=== PATIENT | female | born 1930 | race Caucasian/White ===

== ENCOUNTER 2017-06-09 09:30 | Inpatient (IN) | payer MEDICARE, BC ==
[2017-06-09] MEDS ORDERED: Docusate Sodium 100 MG Cap PO PRN (09:55)
[2017-06-09] MEDS ORDERED: Albuterol 0.083% 2.5 MG/3 ML Neb Soln NEB PRN (09:55)
[2017-06-09] MEDS ORDERED: Magnesium Hydroxide 400 MG/5 ML Susp 30 ML Cup PO PRN (09:55)
[2017-06-09] MEDS ORDERED: Ondansetron 4 MG/2 ML SDV IV PRN (09:55)
[2017-06-09] MEDS ORDERED: Sodium Chloride 0.9% 10 ML Syringe FLUSH PRN (09:55)
[2017-06-09] MEDS ORDERED: Polyethylene Glycol 3350 Powder 17 GM Packet PO PRN (09:55)
[2017-06-09] MEDS ORDERED: oxyCODONE 5 MG Tab PO PRN (09:55)
[2017-06-09] MEDS ORDERED: hydrALAZINE 20 MG/ML SDV IVPUSH PRN (10:38)
--- NOTE | 2017-06-09 10:48 | PCM.HP ---
H&P History of Present Illness - General Date of Service: 06/09/17 Admit Problem/Dx: Admission Diagnosis/Problem Admission Diagnosis/Problem Bradycardia Source of Information: Patient, Old Records, Provider History Limitations: Reports: No Limitations - History of Present Illness Initial Comments - Free Text/Narative: Ms. Dickerson is an 86-year-old woman who is admitted as a direct admission from the clinic with weakness and shortness of breath secondary to third-degree A-V heart block. She has a known history of Mycobacterium avium intracellular pulmonary infection and as a result of this does have chronic shortness of breath. Over the past 2 weeks she has noted increased weakness with poor exercise tolerance and increase in shortness of breath. She also is experienced some episodes of lightheadedness. During that period of time did have upper respiratory tract infection and was treated with antibiotics. She did experience an adverse reaction to levofloxacin with pain and swelling in both ankles. She denies any recent symptoms of chest pain or pressure and has no prior history of significant cardiac disease. She is currently on no rate slowing medications. - Related Data Allergies/Adverse Reactions: Allergies Allergy/AdvReac Type Severity Reaction Status Date / Time bacitracin Allergy Rash Verified 06/09/17 10:09 bacitracin zinc Allergy Rash Verified 06/09/17 10:09 [From Neosporin ([id number])] neomycin sulfate Allergy Rash Verified 06/09/17 10:09 [From Neosporin ([id number])] polymyxin B Allergy Rash Verified 06/09/17 10:09 [From Neosporin ([id number])] Home Medications: Home Meds NK [No Known Home Meds] 11/11/16 [History] Past Medical History HEENT History: Reports: Cataract, Impaired Vision Respiratory History: Reports: Pneumonia, Recurrent Gastrointestinal History: Reports: Cholelithiasis, Pancreatitis GRID TRIMMER History: Reports: Oncologic (Cancer) History: Reports: Basal Cell Carcinoma, Squamous Cell Carcinoma Dermatologic History: Reports: Other (See Below) Other Dermatologic History: skin cancer - Infectious Disease History Infectious Disease History: Reports: Chicken Pox, Shingles - Past Surgical History HEENT Surgical History: Reports: Cataract Surgery GI Surgical History: Reports: Cholecystectomy, Colonoscopy, EGD Dermatological Surgical History: Reports: Skin Biopsy Social & Family History - Family History Family Medical History: Noncontributory - Tobacco Use Smoking Status *Q: Never Smoker Second Hand Smoke Exposure: No - Caffeine Use Caffeine Use: Reports: Coffee - Alcohol Use Days Per Week of Alcohol Use: 4 Number of Drinks Per Day: 1 Total Drinks Per Week: 4 - Recreational Drug Use Recreational Drug Use: No H&P Review of Systems - Review of Systems: Review Of Systems: See Below General: Reports: Weakness. Denies: Fever, Chills HEENT: Reports: No Symptoms Pulmonary: Reports: Shortness of Breath. Denies: Wheezing, Cough, Sputum, Hemoptysis Cardiovascular: Reports: Dyspnea on Exertion, Lightheadedness. Denies: Chest Pain, Palpitations, Orthopnea, PND, Edema Gastrointestinal: Reports: No Symptoms Genitourinary: Reports: No Symptoms Musculoskeletal: Reports: No Symptoms Skin: Reports: No Symptoms Psychiatric: Reports: No Symptoms Neurological: Reports: No Symptoms Hematologic/Lymphatic: Reports: No Symptoms Immunologic: Reports: No Symptoms Exam - Exam Exam: See Below - Vital Signs Vital Signs: Last Vital Signs Temp 97.3 F 06/09/17 10:00 Pulse 35 L 06/09/17 10:00 Resp 19 06/09/17 10:00 BP 198/53 H 06/09/17 10:00 Pulse Ox 95 06/09/17 10:00 Weight: 129 lb 11.2 oz - Exam Quality Assessment: DVT Prophylaxis General: Alert, Oriented, Cooperative HEENT: Conjunctiva Clear, Hearing Intact, Mucosa Moist & Zuehl, Normal Nasal Septum, Posterior Pharynx Clear, Pupils Equal Neck: Supple, Trachea Midline, +2 Carotid Pulse wo Bruit Lungs: Normal Respiratory Effort, Crackles, Rhonchi. No: Rub, Stridor, Wheezing Cardiovascular: Regular Rhythm, Normal S1, Normal S2, Bradycardia. No: Systolic Murmur, Diastolic Murmur GI/Abdominal Exam: Soft, Non-Tender, No Organomegaly, No Distention Back Exam: Normal Inspection, Full Range of Motion Extremities: Non-Tender, No Pedal Edema Skin: Warm, Dry, Intact Neurological: Cranial Nerves Intact, Strength Equal Bilateral, Normal Speech, Normal Tone, Sensation Intact. No: Focal Deficit Neuro Extensive - Mental Status: Alert, Oriented x3, Normal Mood/Affect, Normal Cognition, Memory Intact - Patient Data Lab Results Last 24 hrs: Laboratory Results - last 24 hr 06/09/17 06/09/17 Range/Units 10:05 10:05 WBC 7.6 (4.5-11.0) K/uL RBC 4.59 (3.30-5.50) M/uL Hgb 13.6 (12.0-15.0) g/dL Hct 42.2 (36.0-48.0) % MCV 92 (80-98) fL MCH 30 (27-31) pg MCHC 32 (32-36) % Plt Count 181 (150-400) K/uL Neut % (Auto) 68 H (36-66) % Lymph % (Auto) 20 L (24-44) % [place] % (Auto) 11 H (2-6) % Eos % (Auto) 1 L (2-4) % Baso % (Auto) 0 (0-1) % Sodium 141 (140-148) mmol/L Potassium 4.4 (3.6-5.2) mmol/L Chloride 106 (100-108) mmol/L Carbon Dioxide 26 (21-32) mmol/L Anion Gap 8.7 (5.0-14.0) mmol/L BUN 25 H (7-18) mg/dL Creatinine 1.1 H (0.6-1.0) mg/dL Est Cr Clr Drug Dosing 33.65 mL/min Estimated GFR (MDRD) 47 L (>60) Glucose 110 H (74-106) mg/dL Calcium 9.2 (8.5-10.1) mg/dL Magnesium 2.0 (1.8-2.4) mg/dL Total Bilirubin 0.4 (0.2-1.0) mg/dL AST 46 H (15-37) U/L ALT 76 (12-78) U/L Alkaline Phosphatase 71 (46-116) U/L Troponin I 0.041 (0.000-0.056) ng/mL Total Protein 6.6 (6.4-8.2) g/dL Albumin 3.3 L (3.4-5.0) g/dL Globulin 3.3 (2.3-3.5) g/dL Albumin/Globulin Ratio 1.0 L (1.2-2.2) Result Diagrams: 06/09/17 10:05 06/09/17 10:05 *Q Meaningful Use (ADM) - VTE *Q VTE Criteria *Q: VTE Pharmacological Contraindications *Q: Patient Scheduled Surgery - VTE Risk Assess *Q Each Risk Factor Represents 1 Point: Serious lung disease including pneumonia Total Score 1 Point Risk Factors: 1 Each Risk Factor Represents 2 Points: None Total Score 2 Point Risk Factors: 0 Each Risk Factor Represents 3 Points: Age 75 Years or Greater Total Score 3 Point Risk Factors: 3 Each Risk Factor Represents 5 Points: None Total Score 5 Point Risk Factors: 0 Venous Thromboembolism Risk Factor Score *Q: 4 - Stroke *Q Stroke Criteria *Q: - AMI *Q AMI Criteria *Q: Problem List Initiated/Reviewed/Updated: Yes Orders Last 24hrs: Active Orders 24 hr Category Date Time Status Patient Status [ADT] Routine ADT 06/09/17 09:52 Ordered Bedrest Bedside Commode [RC] ASDIRECTED Care 06/09/17 09:52 Ordered Cardiac Monitoring [RC] .As Directed Care 06/09/17 09:54 Ordered Height and Weight [RC] DAILY Care 06/09/17 09:52 Ordered Intake and Output [RC] QSHIFT Care 06/09/17 09:52 Ordered Notify Provider Consults [RC] ASDIRECTED Care 06/09/17 09:59 Ordered Notify Provider Vital Signs [RC] ASDIRECTED Care 06/09/17 09:52 Ordered Oxygen Therapy [RC] PRN Care 06/09/17 09:52 Ordered RT Aerosol Therapy [RC] ASDIRECTED Care 06/09/17 09:57 Ordered Up With Assistance [RC] ASDIRECTED Care 06/09/17 09:52 Ordered VTE/DVT Education [RC] Per Unit Routine Care 06/09/17 09:52 Ordered Vital Signs [RC] Q2H Care 06/09/17 09:52 Ordered Consult to Physician [CONS] Routine Cons 06/09/17 09:55 Ordered Nothing per Oral After Midnight Diet [DIET] Diet 06/10/17 Breakfast Ordered Regular Diet [DIET] Diet 06/09/17 Breakfast Ordered Chest 1V Frontal [CR] Stat Exams 06/09/17 09:55 Ordered BASIC METABOLIC PANEL,BMP [CHEM] Timed Lab 06/10/17 05:00 Ordered UA W/MICROSCOPIC [URIN] Stat Lab 06/09/17 09:55 Uncollected Acetaminophen [Tylenol] Med 06/09/17 09:55 Ordered 650 mg PO Q4H PRN Albuterol [Proventil Neb Soln] Med 06/09/17 09:55 Ordered 2.5 mg NEB Q4H PRN Docusate Sodium [Colace] Med 06/09/17 09:55 Ordered 100 mg PO BID PRN Lisinopril [Prinivil] Med 06/09/17 10:45 Ordered 10 mg PO DAILY Magnesium Hydroxide [Milk of Magnesia] Med 06/09/17 09:55 Ordered 30 ml PO Q12H PRN Ondansetron [Zofran] Med 06/09/17 09:55 Ordered 4 mg IV Q4H PRN Polyethylene Glycol 3350 [MiraLAX] Med 06/09/17 09:55 Ordered 17 gm PO DAILY PRN Sodium Chloride 0.9% @ 125 MLS/HR (1000ml) Med 06/10/17 00:01 Ordered Sodium Chloride 0.9% [Normal Saline] 1,000 ml IV ASDIRECTED Sodium Chloride 0.9% [Saline Flush] Med 06/09/17 09:55 Ordered 10 ml FLUSH ASDIRECTED PRN hydrALAZINE [Apresoline] Med 06/09/17 10:38 Ordered 10 mg IVPUSH Q4H PRN oxyCODONE Med 06/09/17 09:55 Ordered 5 mg PO Q4H PRN Saline Lock Insert [OM.PC] Routine Oth 06/09/17 09:55 Ordered Sequential Compression Device [OM.PC] Per Unit Routine Oth 06/09/17 09:54 Ordered VTE Pharmacological Contraindications [AST] Per Unit Oth 06/09/17 09:52 Ordered Routine Resuscitation Status Routine Resus Stat 06/09/17 09:52 Ordered Medication Orders Acetaminophen (Tylenol) 650 mg PO Q4H PRN PRN Reason: Pain (Mild 1-3)/fever Albuterol (Proventil Neb Soln) 2.5 mg NEB Q4H PRN PRN Reason: Shortness Of Breath/wheezing Docusate Sodium (Colace) 100 mg PO BID PRN PRN Reason: Constipation Hydralazine HCl (Apresoline) 10 mg IVPUSH Q4H PRN PRN Reason: Hypertension Sodium Chloride (Normal Saline) 1,000 mls @ 125 mls/hr IV ASDIRECTED LIV Lisinopril (Prinivil) 10 mg PO DAILY LIV Magnesium Hydroxide (Milk Of Magnesia) 30 ml PO Q12H PRN PRN Reason: Constipation Ondansetron HCl (Zofran) 4 mg IV Q4H PRN PRN Reason: Nausea/Vomiting Oxycodone HCl (Oxycodone) 5 mg PO Q4H PRN PRN Reason: Pain (moderate 4-6) Polyethylene Glycol (Miralax) 17 gm PO DAILY PRN PRN Reason: Constipation Sodium Chloride (Saline Flush) 10 ml FLUSH ASDIRECTED PRN PRN Reason: Keep Vein Open Assessment/Plan Comment:: ASSESSMENT AND PLAN THIRD DEGREE AV HEART BLOCK-obvious third-degree block on EKG obtained at the clinic, ventricular escape rate in the mid 30s. Recent symptoms of increased shortness of breath, lightheadedness, weakness with poor exercise tolerance. She is currently on no rate slowing medication and has no previous history of significant heart disease. -Consult Dr. Patel for permanent pacemaker placement -Cardiac monitoring -Bedrest until after pacemaker placement -Nothing by mouth after midnight -Initiate IV fluids after midnight for hydration HISTORY OF PULMONARY MYCOBACTERIUM AVIUM INTRACELLULAR INFECTION-she is left with residual shortness of breath, no evidence of active infection HYPERTENSION-blood pressure has been elevated since admission -Lisinopril 10 mg by mouth daily -Hydralazine 10 mg IV as needed for systolic pressure greater than 180 and/or diastolic pressure greater than 106 CHRONIC KIDNEY DISEASE STAGE III -Closely monitor urine output and renal function during hospital stay MAINTENANCE ISSUES -DVT prophylaxis; SCUDs, hold on anticoagulation pending surgery -GI prophylaxis; not indicated -Gtz catheter; not indicated -Nutrition; regular diet, nothing by mouth after midnight -Nicotine dependence; not required CODE STATUS-FULL CODE ADMISSION STATUS-patient will be admitted to inpatient status, expect at least a 2 night hospital stay for evaluation and management of problems as outlined above. At the time of this admission I do not reasonably expected evaluation and management of this problem will require more than a 96 hour hospital stay. DISPOSITION-anticipate discharge to home after the hospital stay. PRIMARY CARE PROVIDER-Dr. Silverman
--- NOTE | 2017-06-09 11:11 | CR ---
Chest 1V Frontal HISTORY: Bradycardia COMPARISON: 12/12/2010, 06/10/2010. FINDINGS: Portable chest, 1007 hours. Diffuse emphysematous changes are redemonstrated. Scattered interstitial fibrotic changes and scarrin g are noted. Overall interstitial pattern is mildly increased compared to the prior exams. There is b orderline cardiomegaly. Atherosclerotic aorta is noted. No vascular redistribution is seen. Blunting of the costophrenic angles bilaterally could represent a small amount of pleural thickening or fluid. Bony structures are osteopenic. Diffuse degenerative changes are noted along the thoracic spine. IMPRESSION: Emphysema with probable scattered fibrotic changes and scarring. Overall interstitial wilmer g pattern appears mildly increased compared with plain chest radiographs of 11/22/2010. This may repre sent worsening of fibrotic changes. I cannot exclude mild interstitial edema or pneumonitis. There ma y be a small amount of pleural fluid bilaterally. Recommend clinical correlation.
[2017-06-09] MEDS: Lisinopril 10 MG Tab PO SCH (11:17)
[2017-06-09] MEDS: Acetaminophen 325 MG Tab PO PRN (17:48)
[2017-06-09] MEDS: Sodium Chloride 0.9% 1,000 ML IV SCH (23:57)
[2017-06-10] MEDS: Sodium Chloride 0.9% 1,000 ML IV SCH ×2 (07:50→13:57)
[2017-06-10] MEDS ORDERED: fentaNYL 100 MCG/2 ML SDV ONE ×2 (08:27→11:36)
[2017-06-10] MEDS ORDERED: Propofol 200 MG/20 ML SDV ONE ×2 (08:27→11:36)
[2017-06-10] MEDS ORDERED: Midazolam 1 MG/ML 2 ML SDV ONE ×2 (08:27→11:36)
[2017-06-10] MEDS: Lisinopril 10 MG Tab PO SCH ×2 (09:47→14:05)
--- NOTE | 2017-06-10 10:12 | PCM.PN ---
- General Info Date of Service: 06/10/17 Subjective Update: Ms. Dickerson was admitted yesterday with third degree AV block. She has been seen and evaluated by Dr. Patel with plan to proceed with dual-chamber permanent pacemaker placement later today. She has been on bedrest for the most part since admission still notes dyspnea with minimal exertion as well as symptoms of lightheadedness. Functional Status: Reports: Tolerating Diet, Urinating - Review of Systems General: Reports: Weakness. Denies: Fever, Chills Pulmonary: Reports: Shortness of Breath. Denies: Pleuritic Chest Pain, Cough, Sputum, Hemoptysis, Wheezing Cardiovascular: Reports: Dyspnea on Exertion, Lightheadedness. Denies: Chest Pain, Palpitations, Orthopnea, PND, Edema Gastrointestinal: Reports: No Symptoms - Patient Data Vitals - Most Recent: Last Vital Signs Temp 97.8 F 06/10/17 08:00 Pulse 35 L 06/10/17 05:51 Resp 21 H 06/10/17 10:00 BP 166/47 H 06/10/17 10:00 Pulse Ox 91 L 06/10/17 10:00 Weight - Most Recent: 121 lb 11.2 oz I&O - Last 24 Hours: Intake & Output 06/09/17 06/10/17 06/10/17 22:59 06:59 14:59 Intake Total 480 1475 Output Total 550 200 200 Balance -70 1275 -200 Lab Results Last 24 Hours: Laboratory Results - last 24 hr 06/09/17 06/09/17 06/09/17 Range/Units 10:05 10:05 11:28 WBC 7.6 (4.5-11.0) K/uL RBC 4.59 (3.30-5.50) M/uL Hgb 13.6 (12.0-15.0) g/dL Hct 42.2 (36.0-48.0) % MCV 92 (80-98) fL MCH 30 (27-31) pg MCHC 32 (32-36) % Plt Count 181 (150-400) K/uL Neut % (Auto) 68 H (36-66) % Lymph % (Auto) 20 L (24-44) % [place] % (Auto) 11 H (2-6) % Eos % (Auto) 1 L (2-4) % Baso % (Auto) 0 (0-1) % Sodium 141 (140-148) mmol/L Potassium 4.4 (3.6-5.2) mmol/L Chloride 106 (100-108) mmol/L Carbon Dioxide 26 (21-32) mmol/L Anion Gap 8.7 (5.0-14.0) mmol/L BUN 25 H (7-18) mg/dL Creatinine 1.1 H (0.6-1.0) mg/dL Est Cr Clr Drug Dosing 33.65 mL/min Estimated GFR (MDRD) 47 L (>60) Glucose 110 H (74-106) mg/dL Calcium 9.2 (8.5-10.1) mg/dL Magnesium 2.0 (1.8-2.4) mg/dL Total Bilirubin 0.4 (0.2-1.0) mg/dL AST 46 H (15-37) U/L ALT 76 (12-78) U/L Alkaline Phosphatase 71 (46-116) U/L Troponin I 0.041 (0.000-0.056) ng/mL Total Protein 6.6 (6.4-8.2) g/dL Albumin 3.3 L (3.4-5.0) g/dL Globulin 3.3 (2.3-3.5) g/dL Albumin/Globulin Ratio 1.0 L (1.2-2.2) Urine Color Yellow Urine Appearance Clear Urine pH 5.0 (4.5-8.0) Ur Specific [place] 1.010 (1.008-1.030) Urine Protein Negative (NEGATIVE) mg/dL Urine Glucose (UA) Normal (NEGATIVE) mg/dL Urine Ketones 15 H (NEGATIVE) mg/dL Urine Occult Blood Negative (NEGATIVE) Urine Nitrite Negative (NEGATIVE) Urine Bilirubin Negative (NEGATIVE) Urine Urobilinogen Normal (NORMAL) mg/dL Ur Leukocyte Esterase Negative (NEGATIVE) Urine RBC Not seen (0-5) Urine WBC 0-5 (0-5) Ur Epithelial Cells Not seen Amorphous Sediment Rare Urine Bacteria Not seen Urine Mucus Not seen 06/10/17 Range/Units 05:53 WBC (4.5-11.0) K/uL RBC (3.30-5.50) M/uL Hgb (12.0-15.0) g/dL Hct (36.0-48.0) % MCV (80-98) fL MCH (27-31) pg MCHC (32-36) % Plt Count (150-400) K/uL Neut % (Auto) (36-66) % Lymph % (Auto) (24-44) % [place] % (Auto) (2-6) % Eos % (Auto) (2-4) % Baso % (Auto) (0-1) % Sodium 143 (140-148) mmol/L Potassium 4.2 (3.6-5.2) mmol/L Chloride 109 H (100-108) mmol/L Carbon Dioxide 24 (21-32) mmol/L Anion Gap 14.2 H (5.0-14.0) mmol/L BUN 24 H (7-18) mg/dL Creatinine 0.9 (0.6-1.0) mg/dL Est Cr Clr Drug Dosing 40.18 mL/min Estimated GFR (MDRD) 60 (>60) Glucose 86 (74-106) mg/dL Calcium 8.3 L (8.5-10.1) mg/dL Magnesium (1.8-2.4) mg/dL Total Bilirubin (0.2-1.0) mg/dL AST (15-37) U/L ALT (12-78) U/L Alkaline Phosphatase (46-116) U/L Troponin I (0.000-0.056) ng/mL Total Protein (6.4-8.2) g/dL Albumin (3.4-5.0) g/dL Globulin (2.3-3.5) g/dL Albumin/Globulin Ratio (1.2-2.2) Urine Color Urine Appearance Urine pH (4.5-8.0) Ur Specific [place] (1.008-1.030) Urine Protein (NEGATIVE) mg/dL Urine Glucose (UA) (NEGATIVE) mg/dL Urine Ketones (NEGATIVE) mg/dL Urine Occult Blood (NEGATIVE) Urine Nitrite (NEGATIVE) Urine Bilirubin (NEGATIVE) Urine Urobilinogen (NORMAL) mg/dL Ur Leukocyte Esterase (NEGATIVE) Urine RBC (0-5) Urine WBC (0-5) Ur Epithelial Cells Amorphous Sediment Urine Bacteria Urine Mucus Med Orders - Current: Current Medications Acetaminophen (Tylenol) 650 mg PO Q4H PRN PRN Reason: Pain (Mild 1-3)/fever Last Admin: 06/09/17 17:48 Dose: 650 mg Albuterol (Proventil Neb Soln) 2.5 mg NEB Q4H PRN PRN Reason: Shortness Of Breath/wheezing Albuterol/Ipratropium (Duoneb 3.0-0.5 Mg/3 Ml) 3 ml INH ONETIME ONE Stop: 06/10/17 10:16 Docusate Sodium (Colace) 100 mg PO BID PRN PRN Reason: Constipation Hydralazine HCl (Apresoline) 10 mg IVPUSH Q4H PRN PRN Reason: Hypertension Sodium Chloride (Normal Saline) 1,000 mls @ 125 mls/hr IV ASDIRECTED [facility] Last Admin: 06/10/17 07:50 Dose: 125 mls/hr Cefazolin Sodium 2 gm/ Premix 20 mls @ 400 mls/hr IV ONCALL ONE Stop: 06/10/17 10:47 Lisinopril (Prinivil) 10 mg PO DAILY [facility] Last Admin: 06/10/17 09:47 Dose: Not Given Magnesium Hydroxide (Milk Of Magnesia) 30 ml PO Q12H PRN PRN Reason: Constipation Ondansetron HCl (Zofran) 4 mg IV Q4H PRN PRN Reason: Nausea/Vomiting Oxycodone HCl (Oxycodone) 5 mg PO Q4H PRN PRN Reason: Pain (moderate 4-6) Polyethylene Glycol (Miralax) 17 gm PO DAILY PRN PRN Reason: Constipation Sodium Chloride (Saline Flush) 10 ml FLUSH ASDIRECTED PRN PRN Reason: Keep Vein Open Discontinued Medications Fentanyl (Sublimaze) Confirm Administered Dose 100 mcg .ROUTE .STK-MED ONE Stop: 06/10/17 08:28 Midazolam HCl (Versed 1 Mg/Ml) Confirm Administered Dose 2 mg .ROUTE .STK-MED ONE Stop: 06/10/17 08:28 Propofol (Diprivan 20 Ml) Confirm Administered Dose 200 mg .ROUTE .STK-MED ONE Stop: 06/10/17 08:28 - Exam Quality Assessment: DVT Prophylaxis General: Alert, Oriented, Cooperative, Mild Distress Lungs: Clear to Auscultation, Normal Respiratory Effort Cardiovascular: Regular Rhythm, No Murmurs, Bradycardia GI/Abdominal Exam: Soft, Non-Tender, No Organomegaly, No Distention Extremities: Non-Tender, No Pedal Edema Skin: Warm, Dry, Intact - Problem List Review Problem List Initiated/Reviewed/Updated: Yes - My Orders Last 24 Hours: My Active Orders 06/09/17 09:52 Patient Status [ADT] Routine Bedrest Bedside Commode [RC] ASDIRECTED Height and Weight [RC] DAILY Intake and Output [RC] QSHIFT Notify Provider Vital Signs [RC] ASDIRECTED Oxygen Therapy [RC] PRN Up With Assistance [RC] ASDIRECTED VTE/DVT Education [RC] Per Unit Routine Vital Signs [RC] Q2H VTE Pharmacological Contraindications [AST] Per Unit Routine Resuscitation Status Routine 06/09/17 09:54 Cardiac Monitoring [RC] Q6H Sequential Compression Device [OM.PC] Per Unit Routine 06/09/17 09:55 Consult to Physician [CONS] Routine Acetaminophen [Tylenol] 650 mg PO Q4H PRN Albuterol [Proventil Neb Soln] 2.5 mg NEB Q4H PRN Docusate Sodium [Colace] 100 mg PO BID PRN Magnesium Hydroxide [Milk of Magnesia] 30 ml PO Q12H PRN Ondansetron [Zofran] 4 mg IV Q4H PRN Polyethylene Glycol 3350 [MiraLAX] 17 gm PO DAILY PRN Sodium Chloride 0.9% [Saline Flush] 10 ml FLUSH ASDIRECTED PRN oxyCODONE 5 mg PO Q4H PRN Saline Lock Insert [OM.PC] Routine 06/09/17 09:57 RT Aerosol Therapy [RC] ASDIRECTED 06/09/17 09:59 Notify Provider Consults [RC] ASDIRECTED 06/09/17 10:38 hydrALAZINE [Apresoline] 10 mg IVPUSH Q4H PRN 06/09/17 10:45 Lisinopril [Prinivil] 10 mg PO DAILY 06/10/17 00:01 Sodium Chloride 0.9% [Normal Saline] 1,000 ml IV ASDIRECTED 06/10/17 Breakfast Nothing per Oral After Midnight Diet [DIET] - Plan Plan:: ASSESSMENT AND PLAN THIRD DEGREE AV HEART BLOCK-stable since admission, heart rate has remained continuously in the 30s. -Dual-chamber permanent pacemaker placement today with Dr. Patel -Cardiac monitoring -Bedrest until after pacemaker placement -Nothing by mouth after midnight -Initiate IV fluids after midnight for hydration HISTORY OF PULMONARY MYCOBACTERIUM AVIUM INTRACELLULAR INFECTION-she is left with residual shortness of breath, no evidence of active infection Blood pressures been under better control with addition of lisinopril, still remains elevated from desired range -Lisinopril 10 mg by mouth daily -Hydralazine 10 mg IV as needed for systolic pressure greater than 180 and/or diastolic pressure greater than 106 CHRONIC KIDNEY DISEASE STAGE III -Closely monitor urine output and renal function during hospital stay MAINTENANCE ISSUES -DVT prophylaxis; SCUDs, hold on anticoagulation pending surgery -GI prophylaxis; not indicated -Gtz catheter; not indicated -Nutrition; regular diet, nothing by mouth after midnight -Nicotine dependence; not required CODE STATUS-FULL CODE ADMISSION STATUS-patient will be admitted to inpatient status, expect at least a 2 night hospital stay for evaluation and management of problems as outlined above. At the time of this admission I do not reasonably expected evaluation and management of this problem will require more than a 96 hour hospital stay. DISPOSITION-anticipate discharge to home after the hospital stay. PRIMARY CARE PROVIDER-Dr. Silverman
[2017-06-10] MEDS ORDERED: Albuterol/Ipratropium 3.0-0.5 MG/3 ML Neb Soln INH ONE (10:15)
[2017-06-10] MEDS ORDERED: ceFAZolin 2 GM in Premix Bag 1 BAG IV ONE (10:45)
[2017-06-10] MEDS ORDERED: Bupivacaine 0.5% 50 ML MDV ONE (11:41)
[2017-06-10] MEDS ORDERED: Lidocaine 1% with EPINEPHrine 1:100,000 50 ML MDV ONE (11:41)
[2017-06-10] MEDS ORDERED: Meropenem 500 MG SDV ONE (11:42)
[2017-06-10] MEDS ORDERED: Linezolid 200 MG/100 ML Bag IRR ONE (12:24)
[2017-06-10] MEDS ORDERED: Sodium Chloride 0.9% 1,000 ML IV SCH (14:00)
[2017-06-10] MEDS: Acetaminophen 325 MG Tab PO PRN (14:09)
[2017-06-10] MEDS: ceFAZolin 1 GM in Premix Bag 1 BAG IV SCH (17:22)
[2017-06-10] MEDS ORDERED: Lisinopril 10 MG Tab PO ONE (17:40)
[2017-06-11] MEDS: ceFAZolin 1 GM in Premix Bag 1 BAG IV SCH ×2 (01:24→09:26)
[2017-06-11] MEDS: Lisinopril 10 MG Tab PO SCH ×2 (08:37→21:51)
--- NOTE | 2017-06-11 10:31 | PCM.PN ---
- General Info Date of Service: 06/11/17 Subjective Update: Ms. Dickerson status post permanent pacemaker placement done yesterday by Dr. Patel , since then heart rate has been in the 70s and 80s. Unfortunately she has not experienced good improvement in exercise tolerance or shortness of breath. She does have a known history of pulmonary fibrosis and previous MAC pneumonia. We have a documented hypoxia on room air at rest of 87%. She become short of breath with fairly minimal exertion. - Review of Systems General: Reports: Weakness. Denies: Fever, Chills Pulmonary: Reports: Shortness of Breath. Denies: Pleuritic Chest Pain, Cough, Sputum, Hemoptysis, Wheezing Cardiovascular: Reports: Dyspnea on Exertion. Denies: Chest Pain, Palpitations , Orthopnea, PND, Edema Gastrointestinal: Reports: No Symptoms Musculoskeletal: Reports: No Symptoms - Patient Data Vitals - Most Recent: Last Vital Signs Temp 97.9 F 06/11/17 07:00 Pulse 84 06/11/17 07:00 Resp 19 06/11/17 07:00 BP 162/77 H 06/11/17 08:37 Pulse Ox 96 06/11/17 07:00 Weight - Most Recent: 121 lb 11.2 oz I&O - Last 24 Hours: Intake & Output 06/10/17 06/11/17 06/11/17 22:59 06:59 14:59 Intake Total 1129 1255 Output Total 400 600 Balance 729 655 Med Orders - Current: Current Medications Acetaminophen (Tylenol) 650 mg PO Q4H PRN PRN Reason: Pain (Mild 1-3)/fever Last Admin: 06/10/17 14:09 Dose: 650 mg Albuterol (Proventil Neb Soln) 2.5 mg NEB Q4H PRN PRN Reason: Shortness Of Breath/wheezing Docusate Sodium (Colace) 100 mg PO BID PRN PRN Reason: Constipation Hydralazine HCl (Apresoline) 10 mg IVPUSH Q4H PRN PRN Reason: Hypertension Cefazolin Sodium/Dextrose 1 gm (/ Premix) 50 mls @ 100 mls/hr IV Q8H [facility] Stop: 06/11/17 10:29 Last Admin: 06/11/17 09:26 Dose: 100 mls/hr Lisinopril (Prinivil) 10 mg PO BID [facility] Magnesium Hydroxide (Milk Of Magnesia) 30 ml PO Q12H PRN PRN Reason: Constipation Metoprolol Tartrate (Lopressor) 25 mg PO BID [facility] Ondansetron HCl (Zofran) 4 mg IV Q4H PRN PRN Reason: Nausea/Vomiting Oxycodone HCl (Oxycodone) 5 mg PO Q4H PRN PRN Reason: Pain (moderate 4-6) Last Admin: 06/10/17 20:58 Dose: 5 mg Polyethylene Glycol (Miralax) 17 gm PO DAILY PRN PRN Reason: Constipation Sodium Chloride (Saline Flush) 10 ml FLUSH ASDIRECTED PRN PRN Reason: Keep Vein Open Discontinued Medications Albuterol/Ipratropium (Duoneb 3.0-0.5 Mg/3 Ml) 3 ml INH ONETIME ONE Stop: 06/10/17 10:16 Last Admin: 06/10/17 11:40 Dose: 3 ml Bupivacaine HCl (Marcaine 0.5%) Confirm Administered Dose 50 ml .ROUTE .STK-MED ONE Stop: 06/10/17 11:42 Last Admin: 06/10/17 12:22 Dose: 5 ml Fentanyl (Sublimaze) Confirm Administered Dose 100 mcg .ROUTE .STK-MED ONE Stop: 06/10/17 08:28 Fentanyl (Sublimaze) Confirm Administered Dose 100 mcg .ROUTE .STK-MED ONE Stop: 06/10/17 11:37 Sodium Chloride (Normal Saline) 1,000 mls @ 125 mls/hr IV ASDIRECTED [facility] Last Admin: 06/10/17 13:57 Dose: 125 mls/hr Cefazolin Sodium 2 gm/ Premix 20 mls @ 400 mls/hr IV ONCALL ONE Stop: 06/10/17 10:47 Last Admin: 06/10/17 11:42 Dose: 400 mls/hr Linezolid (Zyvox) Confirm Administered Dose 100 mls @ as directed .ROUTE .STK- MED ONE Stop: 06/10/17 11:43 Sodium Chloride (Normal Saline) 1,000 mls @ 100 mls/hr IV ASDIRECTED [facility] Last Admin: 06/11/17 00:34 Dose: 100 mls/hr Lidocaine/Epinephrine (Xylocaine 1% With Epinephrine 1:100,000) Confirm Administered Dose 50 ml .ROUTE .STK-MED ONE Stop: 06/10/17 11:42 Last Admin: 06/10/17 12:22 Dose: 5 ml Linezolid (Zyvox) 200 mg IRR .STK-MED ONE Stop: 06/10/17 12:25 Last Admin: 06/10/17 12:24 Dose: 200 mg Lisinopril (Prinivil) 10 mg PO DAILY [facility] Last Admin: 06/11/17 08:37 Dose: 10 mg Lisinopril (Prinivil) 10 mg PO ONETIME ONE Stop: 06/10/17 17:41 Last Admin: 06/10/17 17:30 Dose: 10 mg Meropenem (Merrem) Confirm Administered Dose 500 mg .ROUTE .STK-MED ONE Stop: 06/10/17 11:43 Last Admin: 06/10/17 12:23 Dose: 500 mg Midazolam HCl (Versed 1 Mg/Ml) Confirm Administered Dose 2 mg .ROUTE .STK-MED ONE Stop: 06/10/17 08:28 Midazolam HCl (Versed 1 Mg/Ml) Confirm Administered Dose 2 mg .ROUTE .STK-MED ONE Stop: 06/10/17 11:37 Propofol (Diprivan 20 Ml) Confirm Administered Dose 200 mg .ROUTE .STK-MED ONE Stop: 06/10/17 08:28 Propofol (Diprivan 20 Ml) Confirm Administered Dose 200 mg .ROUTE .STK-MED ONE Stop: 06/10/17 11:37 - Exam Quality Assessment: Supplemental Oxygen, DVT Prophylaxis General: Alert, Oriented, Cooperative, Mild Distress Lungs: Normal Respiratory Effort, Crackles Cardiovascular: Regular Rate, Regular Rhythm, No Murmurs GI/Abdominal Exam: Soft, Non-Tender, No Organomegaly, No Distention Extremities: Non-Tender, No Pedal Edema Skin: Warm, Dry, Intact - Problem List Review Problem List Initiated/Reviewed/Updated: Yes - My Orders Last 24 Hours: My Active Orders 06/11/17 09:25 Convert IV to Saline Lock [OM.PC] Routine 06/11/17 10:18 Ang Chest [CT] Stat 06/11/17 10:30 Metoprolol Tartrate [Lopressor] 25 mg PO Q12HR 06/11/17 21:00 Lisinopril [Prinivil] 10 mg PO BID 06/11/17 Breakfast 2 Gram Sodium Diet [DIET] 06/12/17 05:00 BASIC METABOLIC PANEL,BMP [CHEM] Timed CBC WITH AUTO DIFF [HEME] Timed - Plan Plan:: ASSESSMENT AND PLAN THIRD DEGREE AV HEART BLOCK-stable status post permanent pacemaker placement -Surgical follow-up per Dr. Patel -Cardiac monitoring -Saline lock IV PULMONARY FIBROIS-history of MAC infection and is left with residual shortness of breath, no evidence of active infection. Significant hypoxia at rest and with activity as documented above. -Arrange for home oxygen -CT scan of chest with PE protocol HYPERTENSION-blood pressures been under better control with addition of lisinopril, still remains elevated from desired range -Lisinopril 10 mg twice a day -Metoprolol 25 mg by mouth twice a day -Hydralazine 10 mg IV as needed for systolic pressure greater than 180 and/or diastolic pressure greater than 106 CHRONIC KIDNEY DISEASE STAGE III-renal function has been stable since admission. -Closely monitor urine output and renal function during hospital stay MAINTENANCE ISSUES -DVT prophylaxis; SCUDs, hold on anticoagulation pending surgery -GI prophylaxis; not indicated -Gtz catheter; not indicated -Nutrition; regular diet, nothing by mouth after midnight -Nicotine dependence; not required CODE STATUS-FULL CODE ADMISSION STATUS-patient will be admitted to inpatient status, expect at least a 2 night hospital stay for evaluation and management of problems as outlined above. At the time of this admission I do not reasonably expected evaluation and management of this problem will require more than a 96 hour hospital stay. DISPOSITION-anticipate discharge to home after the hospital stay. PRIMARY CARE PROVIDER-Dr. Silverman
[2017-06-11] MEDS ORDERED: Sodium Chloride 0.9% 10 ML Syringe FLUSH PRN (11:24)
[2017-06-11] MEDS ORDERED: Sodium Chloride 0.9% 100 ML IV SCH (11:30)
[2017-06-11] MEDS ORDERED: Iopamidol 755 Mg/ML 100 ML Bottle IV SCH (11:30)
[2017-06-11] MEDS: Metoprolol Tartrate 25 MG Tab PO SCH ×2 (12:33→21:51)
[2017-06-11] MEDS: Acetaminophen 325 MG Tab PO PRN ×2 (16:20→21:54)
[2017-06-12] MEDS: Metoprolol Tartrate 25 MG Tab PO SCH ×2 (08:28→20:19)
[2017-06-12] MEDS: Lisinopril 10 MG Tab PO SCH ×2 (08:28→20:19)
[2017-06-12] MEDS: Acetaminophen 325 MG Tab PO PRN ×2 (12:27→20:25)
--- NOTE | 2017-06-12 12:50 | PCM.PN ---
- General Info Date of Service: 06/12/17 Subjective Update: Ms. Dickerson has continued to experience symptoms of shortness of breath with minimal exertion and has required ongoing supplemental oxygen to maintain adequate saturations. Denies any symptoms of chest pain or pressure and there has been no PND, orthopnea, or peripheral edema. CT scan of the chest yesterday showed evidence of chronic pulmonary fibrosis secondary to previous MAC infection. There was no obvious infiltrate or pulmonary embolism. She did have mild to moderate bilateral pleural effusions. Functional Status: Reports: Tolerating Diet, Urinating - Review of Systems General: Reports: Weakness. Denies: Fever, Chills Pulmonary: Reports: Shortness of Breath. Denies: Pleuritic Chest Pain, Cough, Sputum, Hemoptysis, Wheezing Cardiovascular: Reports: Dyspnea on Exertion, Lightheadedness. Denies: Chest Pain, Palpitations, Orthopnea, PND, Edema Gastrointestinal: Reports: No Symptoms - Patient Data Vitals - Most Recent: Last Vital Signs Temp 97.7 F 06/12/17 08:00 Pulse 85 06/12/17 08:28 Resp 20 06/12/17 08:00 BP 138/76 06/12/17 08:28 Pulse Ox 95 06/12/17 08:00 Weight - Most Recent: 130 lb 6.4 oz I&O - Last 24 Hours: Intake & Output 06/11/17 06/12/17 06/12/17 22:59 06:59 14:59 Intake Total 640 580 Output Total 300 400 450 Balance 340 -400 130 Lab Results Last 24 Hours: Laboratory Results - last 24 hr 06/12/17 06/12/17 Range/Units 04:43 04:43 WBC 8.9 (4.5-11.0) K/uL RBC 4.47 (3.30-5.50) M/uL Hgb 13.1 (12.0-15.0) g/dL Hct 40.8 (36.0-48.0) % MCV 91 (80-98) fL MCH 29 (27-31) pg MCHC 32 (32-36) % Plt Count 152 (150-400) K/uL Neut % (Auto) 55 (36-66) % Lymph % (Auto) 27 (24-44) % [place] % (Auto) 11 H (2-6) % Eos % (Auto) 6 H (2-4) % Baso % (Auto) 0 (0-1) % Sodium 140 (140-148) mmol/L Potassium 3.9 (3.6-5.2) mmol/L Chloride 106 (100-108) mmol/L Carbon Dioxide 23 (21-32) mmol/L Anion Gap 11.5 (5.0-14.0) mmol/L BUN 12 (7-18) mg/dL Creatinine 0.7 (0.6-1.0) mg/dL Est Cr Clr Drug Dosing 51.20 mL/min Estimated GFR (MDRD) > 60 (>60) Glucose 105 (74-106) mg/dL Calcium 8.5 (8.5-10.1) mg/dL Med Orders - Current: Current Medications Acetaminophen (Tylenol) 650 mg PO Q4H PRN PRN Reason: Pain (Mild 1-3)/fever Last Admin: 06/12/17 12:27 Dose: 650 mg Albuterol (Proventil Neb Soln) 2.5 mg NEB Q4H PRN PRN Reason: Shortness Of Breath/wheezing Last Admin: 06/12/17 04:04 Dose: 2.5 mg Docusate Sodium (Colace) 100 mg PO BID PRN PRN Reason: Constipation Furosemide (Lasix) 40 mg IVPUSH NOW ONE Stop: 06/12/17 12:42 Hydralazine HCl (Apresoline) 10 mg IVPUSH Q4H PRN PRN Reason: Hypertension Sodium Chloride (Normal Saline) 100 mls @ 3.5 mls/sec IV ASDIRECTED [facility] Last Admin: 06/11/17 12:06 Dose: 4 mls/sec Iopamidol (Isovue-370 (76%)) 90 ml IV . DIRECTED [facility] Last Admin: 06/11/17 12:06 Dose: 90 ml Lisinopril (Prinivil) 10 mg PO BID [facility] Last Admin: 06/12/17 08:28 Dose: 10 mg Magnesium Hydroxide (Milk Of Magnesia) 30 ml PO Q12H PRN PRN Reason: Constipation Metoprolol Tartrate (Lopressor) 25 mg PO BID [facility] Last Admin: 06/12/17 08:28 Dose: 25 mg Ondansetron HCl (Zofran) 4 mg IV Q4H PRN PRN Reason: Nausea/Vomiting Oxycodone HCl (Oxycodone) 5 mg PO Q4H PRN PRN Reason: Pain (moderate 4-6) Last Admin: 06/10/17 20:58 Dose: 5 mg Polyethylene Glycol (Miralax) 17 gm PO DAILY PRN PRN Reason: Constipation Sodium Chloride (Saline Flush) 10 ml FLUSH ASDIRECTED PRN PRN Reason: Keep Vein Open Discontinued Medications Albuterol/Ipratropium (Duoneb 3.0-0.5 Mg/3 Ml) 3 ml INH ONETIME ONE Stop: 06/10/17 10:16 Last Admin: 06/10/17 11:40 Dose: 3 ml Bupivacaine HCl (Marcaine 0.5%) Confirm Administered Dose 50 ml .ROUTE .STK-MED ONE Stop: 06/10/17 11:42 Last Admin: 06/10/17 12:22 Dose: 5 ml Fentanyl (Sublimaze) Confirm Administered Dose 100 mcg .ROUTE .STK-MED ONE Stop: 06/10/17 08:28 Fentanyl (Sublimaze) Confirm Administered Dose 100 mcg .ROUTE .STK-MED ONE Stop: 06/10/17 11:37 Sodium Chloride (Normal Saline) 1,000 mls @ 125 mls/hr IV ASDIRECTED [facility] Last Admin: 06/10/17 13:57 Dose: 125 mls/hr Cefazolin Sodium 2 gm/ Premix 20 mls @ 400 mls/hr IV ONCALL ONE Stop: 06/10/17 10:47 Last Admin: 06/10/17 11:42 Dose: 400 mls/hr Linezolid (Zyvox) Confirm Administered Dose 100 mls @ as directed .ROUTE .STK- MED ONE Stop: 06/10/17 11:43 Sodium Chloride (Normal Saline) 1,000 mls @ 100 mls/hr IV ASDIRECTED [facility] Last Admin: 06/11/17 00:34 Dose: 100 mls/hr Cefazolin Sodium/Dextrose 1 gm (/ Premix) 50 mls @ 100 mls/hr IV Q8H [facility] Stop: 06/11/17 10:29 Last Admin: 06/11/17 09:26 Dose: 100 mls/hr Lidocaine/Epinephrine (Xylocaine 1% With Epinephrine 1:100,000) Confirm Administered Dose 50 ml .ROUTE .STK-MED ONE Stop: 06/10/17 11:42 Last Admin: 06/10/17 12:22 Dose: 5 ml Linezolid (Zyvox) 200 mg IRR .STK-MED ONE Stop: 06/10/17 12:25 Last Admin: 06/10/17 12:24 Dose: 200 mg Lisinopril (Prinivil) 10 mg PO DAILY [facility] Last Admin: 06/11/17 08:37 Dose: 10 mg Lisinopril (Prinivil) 10 mg PO ONETIME ONE Stop: 06/10/17 17:41 Last Admin: 06/10/17 17:30 Dose: 10 mg Meropenem (Merrem) Confirm Administered Dose 500 mg .ROUTE .STK-MED ONE Stop: 06/10/17 11:43 Last Admin: 06/10/17 12:23 Dose: 500 mg Midazolam HCl (Versed 1 Mg/Ml) Confirm Administered Dose 2 mg .ROUTE .STK-MED ONE Stop: 06/10/17 08:28 Midazolam HCl (Versed 1 Mg/Ml) Confirm Administered Dose 2 mg .ROUTE .STK-MED ONE Stop: 06/10/17 11:37 Propofol (Diprivan 20 Ml) Confirm Administered Dose 200 mg .ROUTE .STK-MED ONE Stop: 06/10/17 08:28 Propofol (Diprivan 20 Ml) Confirm Administered Dose 200 mg .ROUTE .STK-MED ONE Stop: 06/10/17 11:37 Sodium Chloride (Saline Flush) 10 ml FLUSH ASDIRECTED PRN PRN Reason: Keep Vein Open Stop: 06/11/17 23:00 Last Admin: 06/11/17 12:06 Dose: 10 ml - Exam Quality Assessment: Supplemental Oxygen, DVT Prophylaxis General: Alert, Oriented, Cooperative, Mild Distress Lungs: Clear to Auscultation, Normal Respiratory Effort Cardiovascular: Regular Rate, Regular Rhythm, No Murmurs GI/Abdominal Exam: Soft, Non-Tender, No Organomegaly, No Distention Extremities: Non-Tender, No Pedal Edema Skin: Warm, Dry, Intact - Problem List Review Problem List Initiated/Reviewed/Updated: Yes - My Orders Last 24 Hours: My Active Orders 06/13/17 05:00 BASIC METABOLIC PANEL,BMP [CHEM] Timed 06/14/17 08:00 Echo Comp wo Cont [US] Urgent 06/15/17 08:00 Myocardial Perf Spect Multi [NM] Routine 06/11/17 21:00 Lisinopril [Prinivil] 10 mg PO BID 06/12/17 12:41 Furosemide [Lasix] 40 mg IVPUSH NOW ONE - Plan Plan:: ASSESSMENT AND PLAN THIRD DEGREE AV HEART BLOCK-stable status post permanent pacemaker placement -Surgical follow-up per Dr. Patel -Cardiac monitoring -Saline lock IV PERSISTENT HYPOXIA AND DYSPNEA-CT scan of the chest obtained yesterday, no PE or obvious infiltrate. 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 There were mild to moderate bilateral pleural effusions and evidence of cardiac enlargement. -Echocardiogram on June 14 -Flushing scan Cardiolite study on June 15 -Continue SHERRILL inhibitor and beta merary as initiated for hypertension -Furosemide 40 mg IV today PULMONARY FIBROIS-history of MAC infection and is left with residual shortness of breath, no evidence of active infection. Significant hypoxia at rest and with activity as documented above. -Arrange for home oxygen HYPERTENSION-blood pressures been under better control with addition of lisinopril, still remains elevated from desired range -Lisinopril 10 mg twice a day -Metoprolol 25 mg by mouth twice a day -Hydralazine 10 mg IV as needed for systolic pressure greater than 180 and/or diastolic pressure greater than 106 CHRONIC KIDNEY DISEASE STAGE III-renal function has been stable since admission. -Closely monitor urine output and renal function during hospital stay MAINTENANCE ISSUES -DVT prophylaxis; SCUDs, hold on anticoagulation pending surgery -GI prophylaxis; not indicated -Gtz catheter; not indicated -Nutrition; regular diet, nothing by mouth after midnight -Nicotine dependence; not required CODE STATUS-FULL CODE ADMISSION STATUS-patient will be admitted to inpatient status, expect at least a 2 night hospital stay for evaluation and management of problems as outlined above. At the time of this admission I do not reasonably expected evaluation and management of this problem will require more than a 96 hour hospital stay. DISPOSITION-anticipate discharge to [facility] for restorative physical therapy and occupational therapy. PRIMARY CARE PROVIDER-Dr. Silverman
[2017-06-12] MEDS ORDERED: Furosemide 40 MG/4 ML VIAL IVPUSH ONE (13:00)
[2017-06-13] MEDS: Lisinopril 10 MG Tab PO SCH ×2 (08:57→20:11)
[2017-06-13] MEDS: Metoprolol Tartrate 25 MG Tab PO SCH ×2 (08:57→20:09)
--- NOTE | 2017-06-13 11:58 | PCM.PN ---
- General Info Date of Service: 06/13/17 Functional Status: Reports: Pain Controlled, Tolerating Diet - Review of Systems General: Reports: Weakness Pulmonary: Reports: Shortness of Breath Systems Review Comment:: No acute events overnight. Still has a intermittently productive cough. She feels very tired and become short of breath with any activity. Significant desaturation with activity and off oxygen. No significant chest pain or discomfort at this time. She has not had any fevers. Vital signs have all been stable. - Patient Data Vitals - Most Recent: Last Vital Signs Temp 36.5 C 06/13/17 11:00 Pulse 83 06/13/17 11:00 Resp 18 06/13/17 11:00 BP 123/76 06/13/17 11:00 Pulse Ox 92 L 06/13/17 11:00 Weight - Most Recent: 59.058 kg I&O - Last 24 Hours: Intake & Output 06/12/17 06/13/17 06/13/17 22:59 06:59 14:59 Intake Total 240 180 Output Total 900 300 Balance -660 -120 Lab Results Last 24 Hours: Laboratory Results - last 24 hr 06/13/17 Range/Units 06:00 Sodium 142 (140-148) mmol/L Potassium 4.2 (3.6-5.2) mmol/L Chloride 107 (100-108) mmol/L Carbon Dioxide 29 (21-32) mmol/L Anion Gap 6.1 (5.0-14.0) mmol/L BUN 20 H D (7-18) mg/dL Creatinine 0.8 (0.6-1.0) mg/dL Est Cr Clr Drug Dosing 46.26 mL/min Estimated GFR (MDRD) > 60 (>60) Glucose 95 (74-106) mg/dL Calcium 8.9 (8.5-10.1) mg/dL Med Orders - Current: Current Medications Acetaminophen (Tylenol) 650 mg PO Q4H PRN PRN Reason: Pain (Mild 1-3)/fever Last Admin: 06/12/17 20:25 Dose: 650 mg Albuterol (Proventil Neb Soln) 2.5 mg NEB Q4H PRN PRN Reason: Shortness Of Breath/wheezing Last Admin: 06/12/17 04:04 Dose: 2.5 mg Docusate Sodium (Colace) 100 mg PO BID PRN PRN Reason: Constipation Last Admin: 06/13/17 08:57 Dose: 100 mg Hydralazine HCl (Apresoline) 10 mg IVPUSH Q4H PRN PRN Reason: Hypertension Sodium Chloride (Normal Saline) 100 mls @ 3.5 mls/sec IV ASDIRECTED [facility] Last Admin: 06/11/17 12:06 Dose: 4 mls/sec Iopamidol (Isovue-370 (76%)) 90 ml IV . DIRECTED [facility] Last Admin: 06/11/17 12:06 Dose: 90 ml Lisinopril (Prinivil) 10 mg PO BID [facility] Last Admin: 06/13/17 08:57 Dose: 10 mg Magnesium Hydroxide (Milk Of Magnesia) 30 ml PO Q12H PRN PRN Reason: Constipation Metoprolol Tartrate (Lopressor) 25 mg PO BID [facility] Last Admin: 06/13/17 08:57 Dose: 25 mg Ondansetron HCl (Zofran) 4 mg IV Q4H PRN PRN Reason: Nausea/Vomiting Oxycodone HCl (Oxycodone) 5 mg PO Q4H PRN PRN Reason: Pain (moderate 4-6) Last Admin: 06/10/17 20:58 Dose: 5 mg Polyethylene Glycol (Miralax) 17 gm PO DAILY PRN PRN Reason: Constipation Sodium Chloride (Saline Flush) 10 ml FLUSH ASDIRECTED PRN PRN Reason: Keep Vein Open Discontinued Medications Albuterol/Ipratropium (Duoneb 3.0-0.5 Mg/3 Ml) 3 ml INH ONETIME ONE Stop: 06/10/17 10:16 Last Admin: 06/10/17 11:40 Dose: 3 ml Bupivacaine HCl (Marcaine 0.5%) Confirm Administered Dose 50 ml .ROUTE .STK-MED ONE Stop: 06/10/17 11:42 Last Admin: 06/10/17 12:22 Dose: 5 ml Fentanyl (Sublimaze) Confirm Administered Dose 100 mcg .ROUTE .STK-MED ONE Stop: 06/10/17 08:28 Fentanyl (Sublimaze) Confirm Administered Dose 100 mcg .ROUTE .STK-MED ONE Stop: 06/10/17 11:37 Furosemide (Lasix) 40 mg IVPUSH NOW ONE Stop: 06/12/17 13:01 Last Admin: 06/12/17 13:12 Dose: 40 mg Sodium Chloride (Normal Saline) 1,000 mls @ 125 mls/hr IV ASDIRECTED [facility] Last Admin: 06/10/17 13:57 Dose: 125 mls/hr Cefazolin Sodium 2 gm/ Premix 20 mls @ 400 mls/hr IV ONCALL ONE Stop: 06/10/17 10:47 Last Admin: 06/10/17 11:42 Dose: 400 mls/hr Linezolid (Zyvox) Confirm Administered Dose 100 mls @ as directed .ROUTE .STK- MED ONE Stop: 06/10/17 11:43 Sodium Chloride (Normal Saline) 1,000 mls @ 100 mls/hr IV ASDIRECTED [facility] Last Admin: 06/11/17 00:34 Dose: 100 mls/hr Cefazolin Sodium/Dextrose 1 gm (/ Premix) 50 mls @ 100 mls/hr IV Q8H [facility] Stop: 06/11/17 10:29 Last Admin: 06/11/17 09:26 Dose: 100 mls/hr Lidocaine/Epinephrine (Xylocaine 1% With Epinephrine 1:100,000) Confirm Administered Dose 50 ml .ROUTE .STK-MED ONE Stop: 06/10/17 11:42 Last Admin: 06/10/17 12:22 Dose: 5 ml Linezolid (Zyvox) 200 mg IRR .STK-MED ONE Stop: 06/10/17 12:25 Last Admin: 06/10/17 12:24 Dose: 200 mg Lisinopril (Prinivil) 10 mg PO DAILY [facility] Last Admin: 06/11/17 08:37 Dose: 10 mg Lisinopril (Prinivil) 10 mg PO ONETIME ONE Stop: 06/10/17 17:41 Last Admin: 06/10/17 17:30 Dose: 10 mg Meropenem (Merrem) Confirm Administered Dose 500 mg .ROUTE .STK-MED ONE Stop: 06/10/17 11:43 Last Admin: 06/10/17 12:23 Dose: 500 mg Midazolam HCl (Versed 1 Mg/Ml) Confirm Administered Dose 2 mg .ROUTE .STK-MED ONE Stop: 06/10/17 08:28 Midazolam HCl (Versed 1 Mg/Ml) Confirm Administered Dose 2 mg .ROUTE .STK-MED ONE Stop: 06/10/17 11:37 Propofol (Diprivan 20 Ml) Confirm Administered Dose 200 mg .ROUTE .STK-MED ONE Stop: 06/10/17 08:28 Propofol (Diprivan 20 Ml) Confirm Administered Dose 200 mg .ROUTE .STK-MED ONE Stop: 06/10/17 11:37 Sodium Chloride (Saline Flush) 10 ml FLUSH ASDIRECTED PRN PRN Reason: Keep Vein Open Stop: 06/11/17 23:00 Last Admin: 06/11/17 12:06 Dose: 10 ml - Exam Quality Assessment: Supplemental Oxygen General: Alert, Oriented, Cooperative, No Acute Distress Neck: Supple, No JVD Lungs: Normal Respiratory Effort, Crackles (both bases) Cardiovascular: Regular Rate, Regular Rhythm, No Murmurs GI/Abdominal Exam: Soft, No Distention Extremities: No Pedal Edema Psy/Mental Status: Alert, Normal Affect - Problem List Review Problem List Initiated/Reviewed/Updated: Yes - Plan Plan:: ASSESSMENT AND PLAN 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 Planning stress test to assess for presence of ischemic heart disease. -Surgical follow-up per Dr. Patel -Cardiac monitoring -Saline lock IV PERSISTENT HYPOXIA AND DYSPNEA - CT scan of the chest did not show PE or obvious infiltrate. 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 There were mild to moderate bilateral pleural effusions and evidence of cardiac enlargement. -Thoracentesis for diagnostic purposes in the morning -Echocardiogram on June 14 -Lexiscan Cardiolite study on June 3 -Continue SHERRILL inhibitor and beta merary as initiated for hypertension -Furosemide 40 mg IV today PULMONARY FIBROIS - history of MAC infection and is left with residual shortness of breath, no evidence of active infection so far. Significant hypoxia at rest and with activity as documented above. -Arrange for home oxygen HYPERTENSION - blood pressures been under better control with addition of lisinopril. -Lisinopril 10 mg twice a day -Metoprolol 25 mg by mouth twice a day -Hydralazine 10 mg IV as needed for systolic pressure greater than 180 and/or diastolic pressure greater than 106 CHRONIC KIDNEY DISEASE STAGE III - renal function has been stable since admission. -Closely monitor urine output and renal function during hospital stay MAINTENANCE ISSUES -DVT prophylaxis; SCUDs, hold on anticoagulation pending surgery -GI prophylaxis; not indicated -Gtz catheter; not indicated -Nutrition; regular diet DISPOSITION - anticipate discharge to group home for restorative physical therapy and occupational therapy. Esau Marquez M.D.
[2017-06-13] MEDS ORDERED: Benzonatate 100 MG Cap PO PRN (12:15)
[2017-06-14] MEDS: Lisinopril 10 MG Tab PO SCH ×2 (08:44→21:33)
[2017-06-14] MEDS: Metoprolol Tartrate 25 MG Tab PO SCH ×2 (08:47→21:34)
--- NOTE | 2017-06-14 10:53 | PN ---
DATE OF SERVICE: 06/11/2017 The patient has been afebrile with stable vital signs. Pacemaker functioning satisfactory and she is tolerating a regular diet. However, incision looks very good with no hematoma. She may be discharged home today. If that does occur, we will set up appointment to see me back in [facility] on 06/22/17. Jose Maria Patel MD /[id number]
--- NOTE | 2017-06-14 12:25 | PCM.PN ---
- General Info Date of Service: 06/14/17 Functional Status: Reports: Pain Controlled, Tolerating Diet - Review of Systems General: Reports: Weakness. Denies: Fever Pulmonary: Reports: Shortness of Breath Systems Review Comment:: No acute events overnight. No significant change from yesterday. Still feels short of breath with any activity. Still has an intermittent dry cough. No fevers. Echocardiogram completed this morning but images are not available at this time. She did have a thoracentesis with approximately 600 mL of bloody/ brown fluid removed. Laboratory evaluation is still pending. - Patient Data Vitals - Most Recent: Last Vital Signs Temp 36.7 C 06/14/17 07:41 Pulse 87 06/14/17 08:47 Resp 16 06/14/17 07:41 BP 134/76 06/14/17 08:47 Pulse Ox 94 L 06/14/17 07:41 Weight - Most Recent: 58.332 kg I&O - Last 24 Hours: Intake & Output 06/13/17 06/14/17 06/14/17 22:59 06:59 14:59 Intake Total 640 140 Output Total 350 Balance 290 140 Med Orders - Current: Current Medications Acetaminophen (Tylenol) 650 mg PO Q4H PRN PRN Reason: Pain (Mild 1-3)/fever Last Admin: 06/12/17 20:25 Dose: 650 mg Albuterol (Proventil Neb Soln) 2.5 mg NEB Q4H PRN PRN Reason: Shortness Of Breath/wheezing Last Admin: 06/12/17 04:04 Dose: 2.5 mg Benzonatate (Tessalon Perles) 100 mg PO TID PRN PRN Reason: Cough Docusate Sodium (Colace) 100 mg PO BID PRN PRN Reason: Constipation Last Admin: 06/13/17 08:57 Dose: 100 mg Hydralazine HCl (Apresoline) 10 mg IVPUSH Q4H PRN PRN Reason: Hypertension Lisinopril (Prinivil) 10 mg PO BID [facility] Last Admin: 06/14/17 08:44 Dose: 10 mg Magnesium Hydroxide (Milk Of Magnesia) 30 ml PO Q12H PRN PRN Reason: Constipation Metoprolol Tartrate (Lopressor) 25 mg PO BID [facility] Last Admin: 06/14/17 08:47 Dose: 25 mg Ondansetron HCl (Zofran) 4 mg IV Q4H PRN PRN Reason: Nausea/Vomiting Oxycodone HCl (Oxycodone) 5 mg PO Q4H PRN PRN Reason: Pain (moderate 4-6) Last Admin: 06/10/17 20:58 Dose: 5 mg Polyethylene Glycol (Miralax) 17 gm PO DAILY PRN PRN Reason: Constipation Sodium Chloride (Saline Flush) 10 ml FLUSH ASDIRECTED PRN PRN Reason: Keep Vein Open Discontinued Medications Albuterol/Ipratropium (Duoneb 3.0-0.5 Mg/3 Ml) 3 ml INH ONETIME ONE Stop: 06/10/17 10:16 Last Admin: 06/10/17 11:40 Dose: 3 ml Bupivacaine HCl (Marcaine 0.5%) Confirm Administered Dose 50 ml .ROUTE .STK-MED ONE Stop: 06/10/17 11:42 Last Admin: 06/10/17 12:22 Dose: 5 ml Fentanyl (Sublimaze) Confirm Administered Dose 100 mcg .ROUTE .STK-MED ONE Stop: 06/10/17 08:28 Fentanyl (Sublimaze) Confirm Administered Dose 100 mcg .ROUTE .STK-MED ONE Stop: 06/10/17 11:37 Furosemide (Lasix) 40 mg IVPUSH NOW ONE Stop: 06/12/17 13:01 Last Admin: 06/12/17 13:12 Dose: 40 mg Sodium Chloride (Normal Saline) 1,000 mls @ 125 mls/hr IV ASDIRECTED [facility] Last Admin: 06/10/17 13:57 Dose: 125 mls/hr Cefazolin Sodium 2 gm/ Premix 20 mls @ 400 mls/hr IV ONCALL ONE Stop: 06/10/17 10:47 Last Admin: 06/10/17 11:42 Dose: 400 mls/hr Linezolid (Zyvox) Confirm Administered Dose 100 mls @ as directed .ROUTE .STK- MED ONE Stop: 06/10/17 11:43 Sodium Chloride (Normal Saline) 1,000 mls @ 100 mls/hr IV ASDIRECTED [facility] Last Admin: 06/11/17 00:34 Dose: 100 mls/hr Cefazolin Sodium/Dextrose 1 gm (/ Premix) 50 mls @ 100 mls/hr IV Q8H [facility] Stop: 06/11/17 10:29 Last Admin: 06/11/17 09:26 Dose: 100 mls/hr Sodium Chloride (Normal Saline) 100 mls @ 3.5 mls/sec IV ASDIRECTED [facility] Last Admin: 06/11/17 12:06 Dose: 4 mls/sec Iopamidol (Isovue-370 (76%)) 90 ml IV . DIRECTED [facility] Last Admin: 06/11/17 12:06 Dose: 90 ml Lidocaine/Epinephrine (Xylocaine 1% With Epinephrine 1:100,000) Confirm Administered Dose 50 ml .ROUTE .STK-MED ONE Stop: 06/10/17 11:42 Last Admin: 06/10/17 12:22 Dose: 5 ml Linezolid (Zyvox) 200 mg IRR .STK-MED ONE Stop: 06/10/17 12:25 Last Admin: 06/10/17 12:24 Dose: 200 mg Lisinopril (Prinivil) 10 mg PO DAILY [facility] Last Admin: 06/11/17 08:37 Dose: 10 mg Lisinopril (Prinivil) 10 mg PO ONETIME ONE Stop: 06/10/17 17:41 Last Admin: 06/10/17 17:30 Dose: 10 mg Meropenem (Merrem) Confirm Administered Dose 500 mg .ROUTE .STK-MED ONE Stop: 06/10/17 11:43 Last Admin: 06/10/17 12:23 Dose: 500 mg Midazolam HCl (Versed 1 Mg/Ml) Confirm Administered Dose 2 mg .ROUTE .STK-MED ONE Stop: 06/10/17 08:28 Midazolam HCl (Versed 1 Mg/Ml) Confirm Administered Dose 2 mg .ROUTE .STK-MED ONE Stop: 06/10/17 11:37 Propofol (Diprivan 20 Ml) Confirm Administered Dose 200 mg .ROUTE .STK-MED ONE Stop: 06/10/17 08:28 Propofol (Diprivan 20 Ml) Confirm Administered Dose 200 mg .ROUTE .STK-MED ONE Stop: 06/10/17 11:37 Sodium Chloride (Saline Flush) 10 ml FLUSH ASDIRECTED PRN PRN Reason: Keep Vein Open Stop: 06/11/17 23:00 Last Admin: 06/11/17 12:06 Dose: 10 ml - Exam Quality Assessment: Supplemental Oxygen General: Alert, Oriented, Cooperative, No Acute Distress Neck: Supple Lungs: Normal Respiratory Effort, Crackles (both lung bases) Cardiovascular: Regular Rate, Regular Rhythm GI/Abdominal Exam: Soft, No Distention Extremities: No Pedal Edema Skin: Warm, Dry Psy/Mental Status: Alert, Normal Affect - Problem List Review Problem List Initiated/Reviewed/Updated: Yes - My Orders Last 24 Hours: My Active Orders 06/13/17 12:15 Benzonatate [Tessalon Perles] 100 mg PO TID PRN 06/14/17 10:00 US Guidance Thoracentesis [place] [US] Routine - Plan Plan:: ASSESSMENT AND PLAN 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 Planning stress test to assess for presence of ischemic heart disease. -Surgical follow-up per Dr. Patel -Stress test tomorrow -Cardiac monitoring -Saline lock IV PERSISTENT HYPOXIA AND DYSPNEA - CT scan of the chest did not show PE or obvious infiltrate. Thoracentesis with bloody/brown fluid removed and laboratory evaluation of this fluid is pending. Echo completed but images not available at this time. Stress test planned for tomorrow. Volume status seems more appropriate today. 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 Significant hypoxia at rest and with activity as documented above. -Arrange for home oxygen HYPERTENSION - blood pressures have been stable. -Lisinopril 10 mg twice a day -Metoprolol 25 mg by mouth twice a day -Hydralazine 10 mg IV as needed for systolic pressure greater than 180 and/or diastolic pressure greater than 106 CHRONIC KIDNEY DISEASE STAGE III - renal function has been stable since admission. -Closely monitor urine output and renal function during hospital stay MAINTENANCE ISSUES -DVT prophylaxis; SCUDs -GI prophylaxis; not indicated -Gtz catheter; not indicated -Nutrition; regular diet DISPOSITION - anticipate discharge to [facility] for restorative physical therapy and occupational therapy. Esau Marquez M.D.
[2017-06-14] MEDS: Acetaminophen 325 MG Tab PO PRN (18:42)
--- NOTE | 2017-06-15 08:35 | PN ---
DATE OF SERVICE: 06/15/2017 SUBJECTIVE: Mary is sitting up in the chair. She states that she is having no pain. She is up with assistance and states she still feels weak. OBJECTIVE: GENERAL: Mary Dickerson is an 86-year-old female. VITAL SIGNS: TPR is 96.5, 77, 20; blood pressure 135/80. HEENT: Negative. NECK: Supple. SKIN: Incision for pacemaker, Steri-Strips intact. HEART: Regular rate and rhythm. LUNGS: Clear. EXTREMITIES: Negative. ASSESSMENT: Thoracentesis and dual-chamber pacemaker insertion, 06/14/2017. PLAN: 1. Dressing has been removed. 2. Continue good pulmonary toilet. 3. We will evaluate p.r.n. or in a.m. Ernestina Mcclure PA-C /[id number]
--- NOTE | 2017-06-15 09:19 | US ---
US Guidance Thoracentesis [place] INDICATION: right pleural effusion COMPARISON: None FINDINGS: Ultrasound guidance provided for thoracentesis performed by the clinical service. Images s how bilateral pleural effusions.
[2017-06-15] MEDS: Acetaminophen 325 MG Tab PO PRN (11:54)
[2017-06-15] MEDS: Lisinopril 10 MG Tab PO SCH ×2 (11:57→21:28)
[2017-06-15] MEDS: Metoprolol Tartrate 25 MG Tab PO SCH ×2 (11:57→21:28)
--- NOTE | 2017-06-15 14:15 | NM ---
Myocardial Perf Spect Multi INDICATION: Complete heart block, dyspnea with exertion COMPARISON: 11/11/2016 TECHNIQUE: Nuclear medicine myocardial perfusion scan was performed after IV administration of 8.7 m illicuries uptake technetium 99m Myoview at rest and 25.5 millicuries of technetium 99m at stress (p harmacological). FINDINGS: Myocardial perfusion: No perfusion defects noted. Wall motion: Global hypokinesia, new since the prior study. LVEF stress: 38 % . Previously 83% LVEF rest: 45 % . Previously 60% Other findings: Left ventricle mildly dilated, which appears new. IMPRESSION: Significant change since 11/11/2016. Although no perfusion defects noted, there is globa l hypokinesia as well as decreased ejection fraction at both stress and rest when compared to the kate or study. Left ventricular dilatation also appears new.
--- NOTE | 2017-06-15 15:29 | PCM.PN ---
- General Info Date of Service: 06/15/17 Functional Status: Reports: Pain Controlled, Tolerating Diet - Review of Systems Pulmonary: Reports: Shortness of Breath, Cough Cardiovascular: Denies: Chest Pain Systems Review Comment:: no acute events overnight. Feels a little bit better today but still short of breath with activity. Echocardiogram yesterday showed decreased ejection fraction in the 35-40% range. There was global hypokinesis no major valve issues. Cultures from the thoracentesis fluid are negative so far. She has not had any fevers. Stress test today showed decreased ejection fraction but no evidence for ischemia. - Patient Data Vitals - Most Recent: Last Vital Signs Temp 36.3 C 06/15/17 12:52 Pulse 85 06/15/17 11:57 Resp 16 06/15/17 12:52 BP 131/74 06/15/17 11:57 Pulse Ox 98 06/15/17 12:52 Weight - Most Recent: 57.969 kg I&O - Last 24 Hours: Intake & Output 06/15/17 06/15/17 06/15/17 06:59 14:59 22:59 Intake Total 120 Output Total 300 Balance -180 Lab Results Last 24 Hours: Laboratory Results - last 24 hr 06/14/17 06/14/17 06/14/17 Range/Units 16:20 16:21 16:21 Fluid Type Thoracentesis fluid Thoracentesis fluid Thoracentesis fluid Fluid pH 8 Fluid WBC /ul Fluid RBC /ul Fluid Diff Comment Fluid Mononuclear Cell % Fl Polymorphonucl Cell % Fluid Glucose 127 mg/dL Fluid Total Protein 2.3 g/dL Fluid LDH 111 IU/L Fluid Amylase 36 U/L 06/14/17 Range/Units 16:36 Fluid Type Thoracentesis fluid Fluid pH Fluid WBC 8064 /ul Fluid RBC 04511 /ul Fluid Diff Comment See comments Fluid Mononuclear Cell 75 % Fl Polymorphonucl Cell 25 % Fluid Glucose mg/dL Fluid Total Protein g/dL Fluid LDH IU/L Fluid Amylase U/L Saji Results Last 24 Hours: Microbiology 06/14/17 16:22 Gram Stain - Final Thoracentesis Fluid - Right Med Orders - Current: Current Medications Acetaminophen (Tylenol) 650 mg PO Q4H PRN PRN Reason: Pain (Mild 1-3)/fever Last Admin: 06/15/17 11:54 Dose: 650 mg Albuterol (Proventil Neb Soln) 2.5 mg NEB Q4H PRN PRN Reason: Shortness Of Breath/wheezing Last Admin: 06/12/17 04:04 Dose: 2.5 mg Benzonatate (Tessalon Perles) 100 mg PO TID PRN PRN Reason: Cough Docusate Sodium (Colace) 100 mg PO BID PRN PRN Reason: Constipation Last Admin: 06/13/17 08:57 Dose: 100 mg Furosemide (Lasix) 40 mg IVPUSH ONETIME ONE Stop: 06/15/17 15:28 Hydralazine HCl (Apresoline) 10 mg IVPUSH Q4H PRN PRN Reason: Hypertension Lisinopril (Prinivil) 10 mg PO BID [facility] Last Admin: 06/15/17 11:57 Dose: 10 mg Magnesium Hydroxide (Milk Of Magnesia) 30 ml PO Q12H PRN PRN Reason: Constipation Metoprolol Tartrate (Lopressor) 25 mg PO BID [facility] Last Admin: 06/15/17 11:57 Dose: 25 mg Ondansetron HCl (Zofran) 4 mg IV Q4H PRN PRN Reason: Nausea/Vomiting Oxycodone HCl (Oxycodone) 5 mg PO Q4H PRN PRN Reason: Pain (moderate 4-6) Last Admin: 06/10/17 20:58 Dose: 5 mg Polyethylene Glycol (Miralax) 17 gm PO DAILY PRN PRN Reason: Constipation Sodium Chloride (Saline Flush) 10 ml FLUSH ASDIRECTED PRN PRN Reason: Keep Vein Open Discontinued Medications Albuterol/Ipratropium (Duoneb 3.0-0.5 Mg/3 Ml) 3 ml INH ONETIME ONE Stop: 06/10/17 10:16 Last Admin: 06/10/17 11:40 Dose: 3 ml Bupivacaine HCl (Marcaine 0.5%) Confirm Administered Dose 50 ml .ROUTE .STK-MED ONE Stop: 06/10/17 11:42 Last Admin: 06/10/17 12:22 Dose: 5 ml Fentanyl (Sublimaze) Confirm Administered Dose 100 mcg .ROUTE .STK-MED ONE Stop: 06/10/17 08:28 Fentanyl (Sublimaze) Confirm Administered Dose 100 mcg .ROUTE .STK-MED ONE Stop: 06/10/17 11:37 Furosemide (Lasix) 40 mg IVPUSH NOW ONE Stop: 06/12/17 13:01 Last Admin: 06/12/17 13:12 Dose: 40 mg Sodium Chloride (Normal Saline) 1,000 mls @ 125 mls/hr IV ASDIRECTED [facility] Last Admin: 06/10/17 13:57 Dose: 125 mls/hr Cefazolin Sodium 2 gm/ Premix 20 mls @ 400 mls/hr IV ONCALL ONE Stop: 06/10/17 10:47 Last Admin: 06/10/17 11:42 Dose: 400 mls/hr Linezolid (Zyvox) Confirm Administered Dose 100 mls @ as directed .ROUTE .STK- MED ONE Stop: 06/10/17 11:43 Sodium Chloride (Normal Saline) 1,000 mls @ 100 mls/hr IV ASDIRECTED [facility] Last Admin: 06/11/17 00:34 Dose: 100 mls/hr Cefazolin Sodium/Dextrose 1 gm (/ Premix) 50 mls @ 100 mls/hr IV Q8H [facility] Stop: 06/11/17 10:29 Last Admin: 06/11/17 09:26 Dose: 100 mls/hr Sodium Chloride (Normal Saline) 100 mls @ 3.5 mls/sec IV ASDIRECTED [facility] Last Admin: 06/11/17 12:06 Dose: 4 mls/sec Iopamidol (Isovue-370 (76%)) 90 ml IV . DIRECTED [facility] Last Admin: 06/11/17 12:06 Dose: 90 ml Lidocaine/Epinephrine (Xylocaine 1% With Epinephrine 1:100,000) Confirm Administered Dose 50 ml .ROUTE .STK-MED ONE Stop: 06/10/17 11:42 Last Admin: 06/10/17 12:22 Dose: 5 ml Linezolid (Zyvox) 200 mg IRR .STK-MED ONE Stop: 06/10/17 12:25 Last Admin: 06/10/17 12:24 Dose: 200 mg Lisinopril (Prinivil) 10 mg PO DAILY [facility] Last Admin: 06/11/17 08:37 Dose: 10 mg Lisinopril (Prinivil) 10 mg PO ONETIME ONE Stop: 06/10/17 17:41 Last Admin: 06/10/17 17:30 Dose: 10 mg Meropenem (Merrem) Confirm Administered Dose 500 mg .ROUTE .STK-MED ONE Stop: 06/10/17 11:43 Last Admin: 06/10/17 12:23 Dose: 500 mg Midazolam HCl (Versed 1 Mg/Ml) Confirm Administered Dose 2 mg .ROUTE .STK-MED ONE Stop: 06/10/17 08:28 Midazolam HCl (Versed 1 Mg/Ml) Confirm Administered Dose 2 mg .ROUTE .STK-MED ONE Stop: 06/10/17 11:37 Propofol (Diprivan 20 Ml) Confirm Administered Dose 200 mg .ROUTE .STK-MED ONE Stop: 06/10/17 08:28 Propofol (Diprivan 20 Ml) Confirm Administered Dose 200 mg .ROUTE .STK-MED ONE Stop: 06/10/17 11:37 Regadenoson (Lexiscan) 0.4 mg IVPUSH ONETIME ONE Stop: 06/15/17 10:01 Last Admin: 06/15/17 10:23 Dose: 0.4 mg Sodium Chloride (Saline Flush) 10 ml FLUSH ASDIRECTED PRN PRN Reason: Keep Vein Open Stop: 06/11/17 23:00 Last Admin: 06/11/17 12:06 Dose: 10 ml - Exam Quality Assessment: Supplemental Oxygen General: Alert, Oriented, Cooperative, No Acute Distress Neck: Supple, JVD Lungs: Normal Respiratory Effort, Decreased Breath Sounds (both bases), Crackles (both bases) Cardiovascular: Regular Rate, Regular Rhythm GI/Abdominal Exam: Soft, No Distention Extremities: No Pedal Edema Skin: Warm, Dry Psy/Mental Status: Alert, Normal Affect - Problem List Review Problem List Initiated/Reviewed/Updated: Yes - My Orders Last 24 Hours: My Active Orders 06/15/17 15:27 Furosemide [Lasix] 40 mg IVPUSH ONETIME ONE 06/16/17 05:00 BASIC METABOLIC PANEL,BMP [CHEM] Timed CBC W/O DIFF,HEMOGRAM [HEME] Timed (1) CRP [C-REACTIVE PROTEIN] [CHEM] Timed SEDIMENTATION RATE MANUAL [HEME] Timed - Plan Plan:: ASSESSMENT AND PLAN 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 Planning stress test to assess for presence of ischemic heart disease. -Surgical follow-up per Dr. 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 This seems like it would fit her difficulties better than other diagnoses. Hopefully with appropriate heart failure medications and some time this cardiomyopathy will resolve. She has been stable with no evidence for active infection. mild evidence for volume overload. 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 Significant hypoxia at rest and with activity as documented above. -Arrange for home oxygen HYPERTENSION - blood pressures have been stable. -Lisinopril 10 mg twice a day -Metoprolol 25 mg by mouth twice a day CHRONIC KIDNEY DISEASE STAGE III - renal function has been stable since admission. -Closely monitor urine output and renal function during hospital stay MAINTENANCE ISSUES -DVT prophylaxis; SCUDs -GI prophylaxis; not indicated -Gtz catheter; not indicated -Nutrition; regular diet DISPOSITION - anticipate discharge to [facility] for restorative physical therapy and occupational therapy. Esau Marquez M.D.
[2017-06-15] MEDS ORDERED: Furosemide 40 MG/4 ML VIAL IVPUSH ONE (15:45)
--- NOTE | 2017-06-16 00:36 | STRESS ---
DATE OF SERVICE: 06/15/2017 PROPOSED PROCEDURE: Lexiscan stress test. INDICATION FOR STRESS TEST: Complete heart block and dyspnea on exertion. PRIMARY CARE PHYSICIAN: Walter Silverman M.D. DESCRIPTION OF PROCEDURE: Mary is an 86-year-old female, who presents from her inpatient room for a stress test. Pre-procedure, her blood pressure is 140/80 with a pulse of 78. Baseline EKG shows a sinus rhythm with a right bundle-branch block pattern. She has diffuse T-wave inversions, which are discordant to the QRS complexes. The stress test is administered per the protocol. Review of the continuous EKG monitoring shows no changes in the ST segments or the T waves beyond baseline. Her blood pressure remained essentially stable during the stress test. Heart rate did rise to a maximum of 99 at the 1 minute timbo of recovery and then slowly decreased from there. Post-procedure, her blood pressure is 141/91 and her pulse is 96. Review of the refractory technician's notes suggest that after Lexiscan was injected, she had a heaviness in her chest as well as a flushed feeling and increased dyspnea. These symptoms resolved in the recovery phase. IMPRESSION: Negative EKG portion of the stress test. The patient did report chest heaviness as well as increased dyspnea. Vital signs were stable. The nuclear medicine portion will be interpreted separately. Esau Marquez MD /[id number]
[2017-06-16] MEDS: Metoprolol Tartrate 25 MG Tab PO SCH ×2 (09:55→21:06)
[2017-06-16] MEDS: Lisinopril 10 MG Tab PO SCH ×2 (09:55→21:07)
--- NOTE | 2017-06-16 10:15 | PN ---
DATE OF SERVICE: 06/16/2017 SUBJECTIVE: Mina vital signs have been stable. Pain is controlled. Oral intake adequate. REVIEW OF SYSTEMS: Remainder of review of systems negative for any pertinent positives and negatives. OBJECTIVE: GENERAL: Mary Dickerson is an 86-year-old female. She is alert and oriented. SKIN: Warm and dry. Color pale. VITAL SIGNS: TPR 96.5, 80, 20, blood pressure 134/73. HEENT: Negative. NECK: Supple. HEART: Regular rate and rhythm. LUNGS: Clear. ABDOMEN: Negative. EXTREMITIES: Negative. ASSESSMENT: Thoracentesis and dual chamber pacemaker insertion, 06/14/2017. PLAN: Continue orders per hospitalist, Esau Marquez MD. Surgery will sign off unless further consultation is needed. Ernestina Mcclure PA-C /[id number]
--- NOTE | 2017-06-16 14:06 | PCM.PN ---
- General Info Date of Service: 06/16/17 Functional Status: Reports: Pain Controlled, Tolerating Diet - Review of Systems Pulmonary: Reports: Shortness of Breath Cardiovascular: Reports: Dyspnea on Exertion Systems Review Comment:: No acute events overnight. She has now been weaned off supplemental oxygen after diuresis yesterday. She was able to walk a fair distance in the hallway without hypoxia and only mild shortness of breath. She has not had any chest pain. Appetite has been good. No fevers. Thoracentesis cultures still negative. - Patient Data Vitals - Most Recent: Last Vital Signs Temp 36.4 C 06/16/17 11:08 Pulse 70 06/16/17 11:08 Resp 18 06/16/17 11:08 BP 116/67 06/16/17 11:08 Pulse Ox 96 06/16/17 11:08 Weight - Most Recent: 55.701 kg I&O - Last 24 Hours: Intake & Output 06/15/17 06/16/17 06/16/17 22:59 06:59 14:59 Intake Total 120 240 Output Total 2250 500 Balance -2130 -260 Lab Results Last 24 Hours: Laboratory Results - last 24 hr 06/16/17 06/16/17 Range/Units 05:00 05:00 WBC 6.0 (4.5-11.0) K/uL RBC 4.38 (3.30-5.50) M/uL Hgb 12.5 (12.0-15.0) g/dL Hct 40.1 (36.0-48.0) % MCV 92 (80-98) fL MCH 29 (27-31) pg MCHC 31 L (32-36) % Plt Count 176 (150-400) K/uL ESR 13 (0-25) mm/hr Sodium 142 (140-148) mmol/L Potassium 4.0 (3.6-5.2) mmol/L Chloride 103 (100-108) mmol/L Carbon Dioxide 33 H (21-32) mmol/L Anion Gap 10.0 (5.0-14.0) mmol/L BUN 26 H (7-18) mg/dL Creatinine 0.9 (0.6-1.0) mg/dL Est Cr Clr Drug Dosing 41.12 mL/min Estimated GFR (MDRD) 60 (>60) Glucose 84 (74-106) mg/dL Calcium 9.0 (8.5-10.1) mg/dL C-Reactive Protein 2.69 H (0.0-0.3) mg/dL Saji Results Last 24 Hours: Microbiology 06/14/17 16:22 Gram Stain - Final Thoracentesis Fluid - Right Body Fluid Culture - Preliminary NO GROWTH AFTER 1 DAY Med Orders - Current: Current Medications Acetaminophen (Tylenol) 650 mg PO Q4H PRN PRN Reason: Pain (Mild 1-3)/fever Last Admin: 06/15/17 11:54 Dose: 650 mg Albuterol (Proventil Neb Soln) 2.5 mg NEB Q4H PRN PRN Reason: Shortness Of Breath/wheezing Last Admin: 06/12/17 04:04 Dose: 2.5 mg Benzonatate (Tessalon Perles) 100 mg PO TID PRN PRN Reason: Cough Docusate Sodium (Colace) 100 mg PO BID PRN PRN Reason: Constipation Last Admin: 06/13/17 08:57 Dose: 100 mg Hydralazine HCl (Apresoline) 10 mg IVPUSH Q4H PRN PRN Reason: Hypertension Lisinopril (Prinivil) 10 mg PO BID [facility] Last Admin: 06/16/17 09:55 Dose: 10 mg Magnesium Hydroxide (Milk Of Magnesia) 30 ml PO Q12H PRN PRN Reason: Constipation Metoprolol Tartrate (Lopressor) 25 mg PO BID [facility] Last Admin: 06/16/17 09:55 Dose: 25 mg Ondansetron HCl (Zofran) 4 mg IV Q4H PRN PRN Reason: Nausea/Vomiting Oxycodone HCl (Oxycodone) 5 mg PO Q4H PRN PRN Reason: Pain (moderate 4-6) Last Admin: 06/10/17 20:58 Dose: 5 mg Polyethylene Glycol (Miralax) 17 gm PO DAILY PRN PRN Reason: Constipation Sodium Chloride (Saline Flush) 10 ml FLUSH ASDIRECTED PRN PRN Reason: Keep Vein Open Discontinued Medications Albuterol/Ipratropium (Duoneb 3.0-0.5 Mg/3 Ml) 3 ml INH ONETIME ONE Stop: 06/10/17 10:16 Last Admin: 06/10/17 11:40 Dose: 3 ml Bupivacaine HCl (Marcaine 0.5%) Confirm Administered Dose 50 ml .ROUTE .K-MED ONE Stop: 06/10/17 11:42 Last Admin: 06/10/17 12:22 Dose: 5 ml Fentanyl (Sublimaze) Confirm Administered Dose 100 mcg .ROUTE .[facility] ONE Stop: 06/10/17 08:28 Fentanyl (Sublimaze) Confirm Administered Dose 100 mcg .ROUTE .[facility] ONE Stop: 06/10/17 11:37 Furosemide (Lasix) 40 mg IVPUSH NOW ONE Stop: 06/12/17 13:01 Last Admin: 06/12/17 13:12 Dose: 40 mg Furosemide (Lasix) 40 mg IVPUSH ONETIME ONE Stop: 06/15/17 15:46 Last Admin: 06/15/17 15:35 Dose: 40 mg Sodium Chloride (Normal Saline) 1,000 mls @ 125 mls/hr IV ASDIRECTED [facility] Last Admin: 06/10/17 13:57 Dose: 125 mls/hr Cefazolin Sodium 2 gm/ Premix 20 mls @ 400 mls/hr IV ONCALL ONE Stop: 06/10/17 10:47 Last Admin: 06/10/17 11:42 Dose: 400 mls/hr Linezolid (Zyvox) Confirm Administered Dose 100 mls @ as directed .ROUTE .[facility] ONE Stop: 06/10/17 11:43 Sodium Chloride (Normal Saline) 1,000 mls @ 100 mls/hr IV ASDIRECTED [facility] Last Admin: 06/11/17 00:34 Dose: 100 mls/hr Cefazolin Sodium/Dextrose 1 gm (/ Premix) 50 mls @ 100 mls/hr IV Q8H [facility] Stop: 06/11/17 10:29 Last Admin: 06/11/17 09:26 Dose: 100 mls/hr Sodium Chloride (Normal Saline) 100 mls @ 3.5 mls/sec IV ASDIRECTED [facility] Last Admin: 06/11/17 12:06 Dose: 4 mls/sec Iopamidol (Isovue-370 (76%)) 90 ml IV . DIRECTED [facility] Last Admin: 06/11/17 12:06 Dose: 90 ml Lidocaine/Epinephrine (Xylocaine 1% With Epinephrine 1:100,000) Confirm Administered Dose 50 ml .ROUTE .STK-MED ONE Stop: 06/10/17 11:42 Last Admin: 06/10/17 12:22 Dose: 5 ml Linezolid (Zyvox) 200 mg IRR .STK-MED ONE Stop: 06/10/17 12:25 Last Admin: 06/10/17 12:24 Dose: 200 mg Lisinopril (Prinivil) 10 mg PO DAILY [facility] Last Admin: 06/11/17 08:37 Dose: 10 mg Lisinopril (Prinivil) 10 mg PO ONETIME ONE Stop: 06/10/17 17:41 Last Admin: 06/10/17 17:30 Dose: 10 mg Meropenem (Merrem) Confirm Administered Dose 500 mg .ROUTE .STK-MED ONE Stop: 06/10/17 11:43 Last Admin: 06/10/17 12:23 Dose: 500 mg Midazolam HCl (Versed 1 Mg/Ml) Confirm Administered Dose 2 mg .ROUTE .STK-MED ONE Stop: 06/10/17 08:28 Midazolam HCl (Versed 1 Mg/Ml) Confirm Administered Dose 2 mg .ROUTE .STK-MED ONE Stop: 06/10/17 11:37 Propofol (Diprivan 20 Ml) Confirm Administered Dose 200 mg .ROUTE .STK-MED ONE Stop: 06/10/17 08:28 Propofol (Diprivan 20 Ml) Confirm Administered Dose 200 mg .ROUTE .STK-MED ONE Stop: 06/10/17 11:37 Regadenoson (Lexiscan) 0.4 mg IVPUSH ONETIME ONE Stop: 06/15/17 10:01 Last Admin: 06/15/17 10:23 Dose: 0.4 mg Sodium Chloride (Saline Flush) 10 ml FLUSH ASDIRECTED PRN PRN Reason: Keep Vein Open Stop: 06/11/17 23:00 Last Admin: 06/11/17 12:06 Dose: 10 ml - Exam Quality Assessment: No: Supplemental Oxygen General: Alert, Oriented, Cooperative, No Acute Distress Lungs: Normal Respiratory Effort GI/Abdominal Exam: No Distention Extremities: No Pedal Edema Psy/Mental Status: Alert, Normal Affect - Problem List Review Problem List Initiated/Reviewed/Updated: Yes - Plan Plan:: ASSESSMENT AND PLAN 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 No evidence for ischemic disease on the stress test. -Surgical follow-up per Dr. 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 This seems like it would fit her difficulties better than other diagnoses. Hopefully with appropriate heart failure medications and some time this cardiomyopathy will resolve. She has been stable with no evidence for active infection. Volume status appropriate at this time. CRP elevated at 2.7 but sedimentation rate is normal. 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 No longer hypoxic. HYPERTENSION - blood pressures have been stable. -Lisinopril 10 mg twice a day -Metoprolol 25 mg by mouth twice a day today, transition to long-acting metoprolol tomorrow CHRONIC KIDNEY DISEASE STAGE III - renal function has been stable since admission. -Closely monitor urine output and renal function during hospital stay MAINTENANCE ISSUES -DVT prophylaxis; SCUDs -GI prophylaxis; not indicated -Gtz catheter; not indicated -Nutrition; regular diet DISPOSITION - anticipate discharge to [facility] for restorative physical therapy and occupational therapy on Tuesday. Esau Marquez M.D.
[2017-06-16] MEDS ORDERED: Calcium Carbonate 500 MG Tab.Chew PO PRN (20:59)
[2017-06-16] MEDS: Acetaminophen 325 MG Tab PO PRN (21:06)
[2017-06-17 08:24] VITALS: BP 138/55
[2017-06-17] MEDS: Lisinopril 10 MG Tab PO SCH (08:24)
--- NOTE | 2017-06-17 08:24 | PN ---
DATE OF SERVICE: 06/17/2017 SUBJECTIVE: Mary continues to report some shortness of breath with exertion. She is no longer on any oxygen. REVIEW OF SYSTEMS: Review of 12 systems are negative for any other pertinent positives and negatives. OBJECTIVE: GENERAL: Mary Dickerson is an 86-year-old female. She is sitting up in bed, drinking coffee this morning, alert and oriented. VITAL SIGNS: TPR is 96.2, 69, 16. Blood pressure 130/87. HEENT: Negative. NECK: Supple. Left upper Steri-Strips from pacemaker insertion intact, incision looks good. LUNGS: Clear with some diminished breath sounds in bases. Dressing was removed from right upper back where the thoracentesis was done. EXTREMITIES: Without peripheral edema. ASSESSMENT: Thoracentesis and dual chamber pacemaker insertion, 06/14/2017. PLAN: 1. Dressing removed as above. 2. Follow up her dual pacemaker directions [place], [place]. 3. We will evaluate p.r.n. or in a.m. Ernestina Mcclure PA-C /[id number]
--- NOTE | 2017-06-17 08:31 | PCM.DCSUM1 ---
Discharge Summary - Hospital Course Brief History: 86-year-old female with history of MAC infection and mild pulmonary fibrosis who presented to the clinic with fatigue and shortness of breath. Workup in the clinic was suggestive of third degree heart block and she was directly admitted for pacemaker insertion. - Discharge Data Discharge Date: 06/17/17 Discharge Disposition: DC/Tfer to SNF 03 Condition: Good - Discharge Diagnosis/Problem(s) (1) Dilated cardiomyopathy SNOMED Code(s): 553549969 ICD Code: I42.0 - DILATED CARDIOMYOPATHY Status: Acute Current Visit: Yes (2) Third degree heart block SNOMED Code(s): 88275730 ICD Code: I44.2 - ATRIOVENTRICULAR BLOCK, COMPLETE Status: Chronic Current Visit: No (3) S/P placement of cardiac pacemaker SNOMED Code(s): 871189615 ICD Code: Z95.0 - PRESENCE OF CARDIAC PACEMAKER Status: Acute Current Visit: Yes (4) Weakness SNOMED Code(s): 30928792 ICD Code: R53.1 - WEAKNESS Status: Acute Current Visit: Yes (5) CKD (chronic kidney disease), stage III SNOMED Code(s): 293537469 ICD Code: N18.3 - CHRONIC KIDNEY DISEASE, STAGE 3 (MODERATE) Status: Chronic Current Visit: No (6) Hypertension SNOMED Code(s): 04714087 ICD Code: I10 - ESSENTIAL (PRIMARY) HYPERTENSION Status: Chronic Current Visit: No Qualifiers: Hypertension type: unspecified Qualified Code(s): I10 - Essential (primary ) hypertension (7) Pleural effusion SNOMED Code(s): 33356895 ICD Code: J90 - PLEURAL EFFUSION, NOT ELSEWHERE CLASSIFIED Status: Acute Current Visit: Yes Problem Details: bilateral - Patient Summary/Data Operative Procedure(s) Performed: 1. Dual-chamber pacemaker insertion with Dr. Patel - 06/10. 2. Right thoracentesis with Dr. Patel - 06/14 Consults: Consultations 06/09/17 09:55 Consult to Physician [CONS] Routine Consulting Provider: Jose Maria Patel Courtesy Call Completed to Consulting Physician: Yes Reason for Consult: Permanent pacemaker placement, third degree AV block Labs Pending at D/C: cytology from pleural fluid Hospital Course: Tosha presented as a direct admission from the clinic where she had initially presented with fatigue and shortness of breath. Workup there revealed significant bradycardia with apparent third-degree heart block. she was admitted to the intensive care unit. She was not on any rate slowing medications. Dr. Patel was consult at and a dual-chamber pacemaker was inserted the day after admission. The pacemaker did improve her heart rate but did not improve her symptoms of shortness of breath or dyspnea. A CT scan of the chest revealed bilateral pleural effusions right greater than left. there was no strong evidence for acute infection. She has not had any fevers and her white blood cell count has been normal. She does have a cough but there is no definite infiltrate noted on CT scan. An echocardiogram was completed when it was available on June 14. This showed decreased left ventricular function with a mild dilation of the left ventricle and global hypokinesis. No specific wall motion abnormalities were noted. The next day she had a Phyllis scan stress test completed. This showed 2 more findings with a decreased ejection fraction but no evidence for ischemic heart disease. On June 14 we also performed a right thoracentesis for diagnostic and therapeutic purposes. The pleural fluid was blood-tinged but there is no evidence for bacteria or fungus. All of the studies performed on this exudative fluid have been negative. Cytology is still pending however. She did receive several doses of IV furosemide and eventually we were able to wean her off of her supplemental oxygen which she had required during the entirety of the hospital stay. At this time I am hypothesizing that she had possibly a viral infection one month ago when symptoms started. This infection may have progressed to cause viral myocarditis and a viral pneumonitis. The myocarditis resulted in the dilated cardiomyopathy and the pneumonitis resulted in the pleural effusions. her CRP is moderately elevated at 2.7 but her sedimentation rate was normal. There is no evidence for ischemic heart disease. She has been started on lisinopril and metoprolol to manage initially blood pressure but with excellent overlap for cardiomyopathy management. I am hopeful that with good management of the cardiomyopathy including the SHERRILL inhibitor and beta merary as well as some physical therapy and time that her cardiac function will return to normal. I have ordered a repeat echocardiogram for one month. She will be discharged today to the [facility] for physical therapy. I would anticipate a relatively quick return home after some therapy. Pacemaker care instructions and follow-up instructions are outlined in the discharge order section. - Patient Instructions Diet: Heart Healthy Diet Activity: As Tolerated Activity, Other: Avoid raising left arm above head for 1 week Showering/Bathing: May Shower Notify Provider of: Fever, Increased Pain, Swelling and Redness, Drainage Other/Special Instructions: 1. You were in the hospital for management of bradycardia caused by third-degree heart block. You had a pacemaker placed to treat this heart rhythm abnormality. 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 The hope is that with medications, time and physical therapy that your heart function will improve. I recommend continuing lisinopril and metoprolol to help with the cardiomyopathy and blood pressure. I also recommend a follow-up echocardiogram in 1 month. 2. I have placed a referral to physical and occupational therapy to help improve your strength and endurance while you are at the [facility] receiving rehabilitation. 3. CODE STATUS - full code. 4. Heart healthy diet. 5. Please seek medical attention if you develop fever greater than 101, have sudden onset of shortness of breath or if you develop redness, swelling or drainage from the pacemaker insertion site. - Discharge Plan Prescriptions/Med Rec: Acetaminophen [Tylenol] 650 mg PO Q4H PRN #100 tablet PRN Reason: Pain (Mild 1-3)/fever Benzonatate [Tessalon Perles] 100 mg PO TID PRN #45 cap PRN Reason: Cough Calcium Carbonate [Tums] 1,000 mg PO Q2H PRN #50 tab.chew PRN Reason: Indigestion Lisinopril [Prinivil] 10 mg PO BID #60 tablet Metoprolol Succinate [Toprol XL] 50 mg PO DAILY #30 tab.er Home Medications: Home Meds Acetaminophen [Tylenol] 650 mg PO Q4H PRN #100 tablet 06/17/17 [Rx] Benzonatate [Tessalon Perles] 100 mg PO TID PRN #45 cap 06/17/17 [Rx] Calcium Carbonate [Tums] 1,000 mg PO Q2H PRN #50 tab.chew 06/17/17 [Rx] Lisinopril [Prinivil] 10 mg PO BID #60 tablet 06/17/17 [Rx] Metoprolol Succinate [Toprol XL] 50 mg PO DAILY #30 tab.er 06/17/17 [Rx] Patient Handouts: Lisinopril tablets, Metoprolol extended-release tablets, Cardiomyopathy Referrals: Jose Maria Patel MD [Physician] - 06/22/17 11:00 am Walter Silverman MD [Physician] - (1-2 weeks - follow-up hospital stay for cardiomyopathy and pacemaker placement) - Discharge Summary/Plan Comment DC Time >30 min.: Yes (45 - new NH discharge ) - Patient Data Vitals - Most Recent: Last Vital Signs Temp 35.7 C 06/17/17 02:00 Pulse 69 06/17/17 02:00 Resp 16 06/17/17 02:00 BP 130/87 06/17/17 02:00 Pulse Ox 94 L 06/17/17 02:00 Weight - Most Recent: 55.656 kg I&O - Last 24 hours: Intake & Output 06/16/17 06/17/17 06/17/17 22:59 06:59 14:59 Intake Total 300 Output Total 400 300 Balance -100 -300 Lab Results - Last 24 hrs: Laboratory Results - last 24 hr 06/16/17 Range/Units 05:00 ESR 13 (0-25) mm/hr SAMARIA Results - Last 24 hrs: Microbiology 06/14/17 16:22 Gram Stain - Final Thoracentesis Fluid - Right Body Fluid Culture - Preliminary NO GROWTH AFTER 2 DAYS Med Orders - Current: Current Medications Acetaminophen (Tylenol) 650 mg PO Q4H PRN PRN Reason: Pain (Mild 1-3)/fever Last Admin: 06/16/17 21:06 Dose: 650 mg Albuterol (Proventil Neb Soln) 2.5 mg NEB Q4H PRN PRN Reason: Shortness Of Breath/wheezing Last Admin: 06/12/17 04:04 Dose: 2.5 mg Benzonatate (Tessalon Perles) 100 mg PO TID PRN PRN Reason: Cough Calcium Carbonate/Glycine (Tums) 500 mg PO Q2H PRN PRN Reason: Indigestion Last Admin: 06/16/17 21:08 Dose: 500 mg Docusate Sodium (Colace) 100 mg PO BID PRN PRN Reason: Constipation Last Admin: 06/13/17 08:57 Dose: 100 mg Hydralazine HCl (Apresoline) 10 mg IVPUSH Q4H PRN PRN Reason: Hypertension Lisinopril (Prinivil) 10 mg PO BID [facility] Last Admin: 06/16/17 21:07 Dose: 10 mg Magnesium Hydroxide (Milk Of Magnesia) 30 ml PO Q12H PRN PRN Reason: Constipation Metoprolol Succinate (Toprol Xl) 50 mg PO DAILY [facility] Ondansetron HCl (Zofran) 4 mg IV Q4H PRN PRN Reason: Nausea/Vomiting Oxycodone HCl (Oxycodone) 5 mg PO Q4H PRN PRN Reason: Pain (moderate 4-6) Last Admin: 06/10/17 20:58 Dose: 5 mg Polyethylene Glycol (Miralax) 17 gm PO DAILY PRN PRN Reason: Constipation Sodium Chloride (Saline Flush) 10 ml FLUSH ASDIRECTED PRN PRN Reason: Keep Vein Open Discontinued Medications Albuterol/Ipratropium (Duoneb 3.0-0.5 Mg/3 Ml) 3 ml INH ONETIME ONE Stop: 06/10/17 10:16 Last Admin: 06/10/17 11:40 Dose: 3 ml Bupivacaine HCl (Marcaine 0.5%) Confirm Administered Dose 50 ml .ROUTE .STK-MED ONE Stop: 06/10/17 11:42 Last Admin: 06/10/17 12:22 Dose: 5 ml Fentanyl (Sublimaze) Confirm Administered Dose 100 mcg .ROUTE .STK-MED ONE Stop: 06/10/17 08:28 Fentanyl (Sublimaze) Confirm Administered Dose 100 mcg .ROUTE .STK-MED ONE Stop: 06/10/17 11:37 Furosemide (Lasix) 40 mg IVPUSH NOW ONE Stop: 06/12/17 13:01 Last Admin: 06/12/17 13:12 Dose: 40 mg Furosemide (Lasix) 40 mg IVPUSH ONETIME ONE Stop: 06/15/17 15:46 Last Admin: 06/15/17 15:35 Dose: 40 mg Sodium Chloride (Normal Saline) 1,000 mls @ 125 mls/hr IV ASDIRECTED [facility] Last Admin: 06/10/17 13:57 Dose: 125 mls/hr Cefazolin Sodium 2 gm/ Premix 20 mls @ 400 mls/hr IV ONCALL ONE Stop: 06/10/17 10:47 Last Admin: 06/10/17 11:42 Dose: 400 mls/hr Linezolid (Zyvox) Confirm Administered Dose 100 mls @ as directed .ROUTE .STK- MED ONE Stop: 06/10/17 11:43 Sodium Chloride (Normal Saline) 1,000 mls @ 100 mls/hr IV ASDIRECTED [facility] Last Admin: 06/11/17 00:34 Dose: 100 mls/hr Cefazolin Sodium/Dextrose 1 gm (/ Premix) 50 mls @ 100 mls/hr IV Q8H [facility] Stop: 06/11/17 10:29 Last Admin: 06/11/17 09:26 Dose: 100 mls/hr Sodium Chloride (Normal Saline) 100 mls @ 3.5 mls/sec IV ASDIRECTED [facility] Last Admin: 06/11/17 12:06 Dose: 4 mls/sec Iopamidol (Isovue-370 (76%)) 90 ml IV . DIRECTED [facility] Last Admin: 06/11/17 12:06 Dose: 90 ml Lidocaine/Epinephrine (Xylocaine 1% With Epinephrine 1:100,000) Confirm Administered Dose 50 ml .ROUTE .STK-MED ONE Stop: 06/10/17 11:42 Last Admin: 06/10/17 12:22 Dose: 5 ml Linezolid (Zyvox) 200 mg IRR .STK-MED ONE Stop: 06/10/17 12:25 Last Admin: 06/10/17 12:24 Dose: 200 mg Lisinopril (Prinivil) 10 mg PO DAILY [facility] Last Admin: 06/11/17 08:37 Dose: 10 mg Lisinopril (Prinivil) 10 mg PO ONETIME ONE Stop: 06/10/17 17:41 Last Admin: 06/10/17 17:30 Dose: 10 mg Meropenem (Merrem) Confirm Administered Dose 500 mg .ROUTE .STK-MED ONE Stop: 06/10/17 11:43 Last Admin: 06/10/17 12:23 Dose: 500 mg Metoprolol Tartrate (Lopressor) 25 mg PO BID [facility] Stop: 06/16/17 23:45 Last Admin: 06/16/17 21:06 Dose: 25 mg Midazolam HCl (Versed 1 Mg/Ml) Confirm Administered Dose 2 mg .ROUTE .STK-MED ONE Stop: 06/10/17 08:28 Midazolam HCl (Versed 1 Mg/Ml) Confirm Administered Dose 2 mg .ROUTE .STK-MED ONE Stop: 06/10/17 11:37 Propofol (Diprivan 20 Ml) Confirm Administered Dose 200 mg .ROUTE .STK-MED ONE Stop: 06/10/17 08:28 Propofol (Diprivan 20 Ml) Confirm Administered Dose 200 mg .ROUTE .STK-MED ONE Stop: 06/10/17 11:37 Regadenoson (Lexiscan) 0.4 mg IVPUSH ONETIME ONE Stop: 06/15/17 10:01 Last Admin: 06/15/17 10:23 Dose: 0.4 mg Sodium Chloride (Saline Flush) 10 ml FLUSH ASDIRECTED PRN PRN Reason: Keep Vein Open Stop: 06/11/17 23:00 Last Admin: 06/11/17 12:06 Dose: 10 ml - Exam Quality Assessment: Denies: Supplemental Oxygen General: Reports: Alert, Oriented, Cooperative, No Acute Distress Lungs: Reports: Normal Respiratory Effort Cardiovascular: Reports: Regular Rate, Regular Rhythm, Other (pacemaker sight left upper chest with no redness) Extremities: No Pedal Edema Psy/Mental Status: Reports: Alert, Normal Affect *Q Meaningful Use (DIS) - VTE *Q VTE Criteria *Q: VTE Pharmacological Contraindications *Q: Patient Scheduled Surgery - Stroke *Q Stroke Criteria *Q: - AMI *Q AMI Criteria *Q:
[2017-06-17] MEDS ORDERED: Metoprolol Succinate 50 MG Tab.ER PO SCH (09:00)
--- NOTE | 2017-06-20 13:20 | OR ---
DATE OF PROCEDURE: 06/10/2017 PREOPERATIVE DIAGNOSIS: Third-degree AV block. POSTOPERATIVE DIAGNOSIS: Third-degree AV block. OPERATIVE PROCEDURE: Placement of dual-chamber cardiac pacemaker (60225). ANESTHESIA: Local plus IV sedation. INDICATION FOR PROCEDURE: This is an 86-year-old female presenting with a heart rate running in the 30s. She has felt severely weak over the last few days and weeks, likely related to the low rate. Plan is to proceed with dual-chamber pacemaker insertion. Potential risks including bleeding, infection, injury to vasculature or pneumothorax, possible malfunction of the pacemaker as well as possibility of cardiopulmonary, septic, or hemorrhagic complications leading to were discussed, and the patient wishes to proceed. DETAILS OF PROCEDURE: The patient was taken to the operating room and placed in a supine position. After IV sedation was administered, the upper chest and neck areas were prepped and draped. The left subclavian vein was then cannulated. A guidewire was passed and manipulated into the superior vena cava. Some additional local was then injected and a transverse incision was made and carried down through the skin and subcutaneous tissue through the pectoralis major fascia. Some subfascial pocket was then constructed bluntly. A second wire could be entered into the subclavian vein, but at no point could be manipulated into the superior vena cava, so we elected to use a one-wire technique for placement of the leads. Initially, the ventricular lead which was a Medtronic model #5076- 52 was placed along with a wire through the introducer and the introducer and peel-away catheter were removed leaving the wire in place, and the atrial lead was then placed over the wire as well, this being Medtronic model #5076-45. Initially, the ventricular lead was placed and the first location tested. This appeared to be satisfactory and had a stimulation threshold of 0.8 V, impedance of 862 ohms, and R-wave sensing of 4.3 mV. The atrial lead was then placed. The patient at this point noted to have an atrial tachycardia with rate around 130 and 140, the stimulation threshold measured 1.2 V, impedance of 529 ohms, and P-wave sensing of 3.4 mV. Both of these were tested with 10 V and no diaphragmatic pacing was identified. The Medtronic model #[id number] was then placed and pacing and sensing function was noted. This was placed on AC mode of DDD with the lower rate of 70 and the upper tracking rate of 110. The leads were then sutured in position with some 3-0 Vicryl stitch. The redundant leads and pulse generator were placed in the pocket. Throughout the procedure, the pocket was irrigated intermittently with a Zyvox-containing saline solution. The incision was then closed with 2 layers of 3-0 Vicryl stitch deep and a 4-0 Vicryl subcuticular stitch. Dressing was applied. The patient was taken to the recovery room in satisfactory condition. There were no evident complications. Jose Maria Patel MD /[id number]
--- NOTE | 2017-06-20 14:20 | OR ---
DATE OF PROCEDURE: 06/09/2017 PREOPERATIVE DIAGNOSIS: Bilateral pleural effusions. POSTOPERATIVE DIAGNOSIS: Bilateral pleural effusions. OPERATIVE PROCEDURE: Ultrasound-guided right thoracentesis (79079). ANESTHESIA: Local. INDICATION FOR PROCEDURE: This is an 86-year-old having some persistent shortness of breath. She was noted to have bilateral pleural effusions. 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 Plan is to proceed with a right thoracentesis with ultrasound guidance. Potential risks including bleeding, infection, pneumothorax, and such were reviewed, and the patient wishes to proceed. DETAILS OF THE PROCEDURE: The patient was placed in sitting position on her hospital bed and the right posterior lateral chest wall was evaluated by ultrasound and a satisfactory location marked there for the thoracentesis; that area was then prepped and draped, anesthetized with 1% lidocaine. The thoracentesis catheter was placed, roughly 400 mL of quite densely blood-stained pleural fluid was then evacuated. This was not clotting and that clearly was not due to active bleeding. As much fluid as possible was evacuated and the fluid was sent for full cytologic, microbiologic, cell count, differential, and chemistry exam. The catheter was then withdrawn. Dressing applied. Subsequent chest x-ray showed no complications and satisfactory removal of the fluid. Jose Maria Patel MD /[id number]
== END 2017-06-17 10:05 | DRG 243 ==
LOC: JP.ICU 09:30 → JP.MS 06-11 16:49
PROVIDERS: ADMIT Hospitalist; ATTEND Internal Medicine
PROC: 0W994ZX Drainage of Right Pleural Cavity, Percutaneous Endoscopic Approach, Diagnostic (ICD-10-PCS; 2017-06-09)
PROC: 0JH606Z Insertion of Pacemaker, Dual Chamber into Chest Subcutaneous Tissue and Fascia, Open Approach (ICD-10-PCS; principal; 2017-06-10)
PROC: 02HL3JZ Insertion of Pacemaker Lead into Left Ventricle, Percutaneous Approach (ICD-10-PCS; 2017-06-10)
DX: I44.2 Atrioventricular block, complete (principal); I42.0 Dilated cardiomyopathy; J90 Pleural effusion, not elsewhere classified; I12.9 Hypertensive chronic kidney disease with stage 1 through stage 4 chronic kidney disease, or unspecified chronic kidney disease; N18.3 Chronic kidney disease, stage 3 (moderate); J84.10 Pulmonary fibrosis, unspecified; R09.02 Hypoxemia; R06.00 Dyspnea, unspecified; Z85.828 Personal history of other malignant neoplasm of skin; Z87.01 Personal history of pneumonia (recurrent); Z88.8 Allergy status to other drugs, medicaments and biological substances; H54.7 Unspecified visual loss
CPT/HCPCS: 36415; 71010; 71010-26; 71275; 78452; 78452-26; 80048; 80053; 81001; 82150; 82945; 83615; 83735; 83986; 84157; 84484; 85025; 85027; 85651; 86140; 87015; 87070; 87102; 87116; 87205; 87206; 88112; 88305; 88341; 88342; 89050; 93017; 93306; 94640; A9270-GY; A9500; C1785; C1898; J0690; J1940; J2020; J2185; J2250; J2704; J2785; J3010; J7030; J7040; J7050; J7620; Q9967

== ENCOUNTER 2017-07-09 01:32 | Emergency (ER) | payer MEDICARE, BC ==
[2017-07-09] MEDS ORDERED: Ondansetron 4 MG/2 ML SDV IVPUSH ONE (02:08)
[2017-07-09] MEDS ORDERED: fentaNYL 100 MCG/2 ML SDV IVPUSH ONE (02:08)
[2017-07-09 02:27] VITALS: BP 109/57
[2017-07-09] MEDS ORDERED: Acetaminophen/HYDROcodone 325-5 MG Tab PO ONE (03:17)
--- NOTE | 2017-07-09 03:34 | EDM.PDOC ---
ED HPI GENERAL MEDICAL PROBLEM - General Chief Complaint: Chest Pain Stated Complaint: MEDICAL VIA TRI Time Seen by Provider: 07/09/17 01:57 Source of Information: Reports: Patient History Limitations: Reports: No Limitations - History of Present Illness INITIAL COMMENTS - FREE TEXT/NARRATIVE: This patient is a resident at a local detention where his she is staying while recuperating from her recent pacemaker placement. She's had some problems with pleurisy lately. She had been treated with some Relafen recently but said that didn't help and so that was discontinued. She has just been using Tylenol. She said today her chest seemed to be more tight than usual and she seemed a little bit short of breath. She says this is been going on ever since the pacemaker was placed. At the detention she was given some Tums and Maalox but that didn't help eventually she received some sublingual nitroglycerin which also didn't seem to help. She does note that she gets a lot of increased pain with deep inspirations. 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 Upper Chest Pain Score (Numeric/FACES): 5 - Related Data Allergies Allergy/AdvReac Type Severity Reaction Status Date / Time bacitracin Allergy Rash Verified 07/09/17 01:44 bacitracin zinc Allergy Rash Verified 07/09/17 01:44 [From Neosporin ([id number])] levofloxacin Allergy Swelling Verified 07/09/17 01:44 neomycin sulfate Allergy Rash Verified 07/09/17 01:44 [From Neosporin ([id number])] polymyxin B Allergy Rash Verified 07/09/17 01:44 [From Neosporin ([id number])] Home Meds: Home Meds Acetaminophen [Tylenol] 650 mg PO Q4H PRN #100 tablet 06/17/17 [Rx] Calcium Carbonate [Tums] 1,000 mg PO Q2H PRN #50 tab.chew 06/17/17 [Rx] Lisinopril [Prinivil] 10 mg PO BID #60 tablet 06/17/17 [Rx] Metoprolol Succinate [Toprol XL] 50 mg PO DAILY #30 tab.er 06/17/17 [Rx] Benzonatate [Tessalon Perles] 100 mg PO Q8H PRN 07/09/17 [History] Calcium Carbonate [Tums] 200 mg PO Q4H PRN 07/09/17 [History] Nabumetone [Relafen] 750 mg PO Q24H PRN 07/09/17 [History] Nitroglycerin [Nitrostat] 0.4 mg SL ASDIRECTED PRN 07/09/17 [History] Past Medical History HEENT History: Reports: Cataract, Impaired Vision Cardiovascular History: Reports: Pacemaker, Syncope Other Cardiovascular History: 3rd degree heart block. Respiratory History: Reports: Pneumonia, Recurrent Other Respiratory History: Mycobacterium avium-intracellulare complex of the lungs. 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: Oncologic (Cancer) History: Reports: Basal Cell Carcinoma, Squamous Cell Carcinoma Dermatologic History: Reports: Other (See Below) Other Dermatologic History: skin cancer - Infectious Disease History Infectious Disease History: Reports: Chicken Pox - Past Surgical History HEENT Surgical History: Reports: Cataract Surgery Cardiovascular Surgical History: Reports: Pacer GI Surgical History: Reports: Cholecystectomy, Colonoscopy, EGD Dermatological Surgical History: Reports: Skin Biopsy Social & Family History - Family History Family Medical History: Noncontributory - Tobacco Use Smoking Status *Q: Unknown Ever Smoked Second Hand Smoke Exposure: No - Caffeine Use Caffeine Use: Reports: Coffee - Alcohol Use Days Per Week of Alcohol Use: 4 Number of Drinks Per Day: 1 Total Drinks Per Week: 4 - Recreational Drug Use Recreational Drug Use: No ED ROS GENERAL - Review of Systems Review Of Systems: ROS reveals no pertinent complaints other than HPI. ED EXAM, GENERAL - Physical Exam Exam: See Below Exam Limited By: No Limitations General Appearance: Alert, Mild Distress, Thin Eye Exam: Bilateral Eye: Normal Inspection Throat/Mouth: Normal Oropharynx Respiratory/Chest: Lungs Clear, Other (Note this lady is sitting bolt upright and she gets pain in the chest when she lays back or reclines on the stretcher to about 45) Cardiovascular: Normal Peripheral Pulses, Regular Rate, Rhythm (Monitor shows probable atrial fibrillation.) Peripheral Pulses: 2+: Radial (L), Radial (R) GI/Abdominal: Non-Tender Back Exam: Normal Inspection Extremities: Normal Inspection, No Pedal Edema Neurological: Alert, Oriented Psychiatric: Normal Affect Skin Exam: Warm, Dry Course - Vital Signs Last Recorded V/S: Last Vital Signs Temp 36.0 C 01/27/18 01:43 Pulse 78 07/09/17 02:27 Resp 15 07/09/17 02:27 BP 109/57 L 07/09/17 02:27 Pulse Ox 95 07/09/17 02:27 - Orders/Labs/Meds Orders: Active Orders 24 hr Category Date Time Status EKG Documentation Completion [RC] ASDIRECTED Care 07/09/17 02:08 Active Chest 1V Frontal [CR] Urgent Exams 07/09/17 02:08 Taken EKG 12 Lead [EK] Urgent Ther 07/09/17 02:07 Ordered Labs: Laboratory Tests 07/09/17 07/09/17 07/09/17 Range/Units 02:21 02:21 02:21 WBC 12.3 H (4.5-11.0) K/uL RBC 4.73 (3.30-5.50) M/uL Hgb 13.7 (12.0-15.0) g/dL Hct 43.1 (36.0-48.0) % MCV 91 (80-98) fL MCH 29 (27-31) pg MCHC 32 (32-36) % Plt Count 223 (150-400) K/uL Neut % (Auto) 79 H (36-66) % Lymph % (Auto) 12 L (24-44) % [place] % (Auto) 9 H (2-6) % Eos % (Auto) 0 L (2-4) % Baso % (Auto) 0 (0-1) % Sodium 137 L (140-148) mmol/L Potassium 4.6 (3.6-5.2) mmol/L Chloride 102 (100-108) mmol/L Carbon Dioxide 28 (21-32) mmol/L Anion Gap 11.6 (5.0-14.0) mmol/L BUN 34 H (7-18) mg/dL Creatinine 1.0 (0.6-1.0) mg/dL Est Cr Clr Drug Dosing 34.75 mL/min Estimated GFR (MDRD) 53 L (>60) Glucose 143 H (74-106) mg/dL Calcium 9.8 (8.5-10.1) mg/dL Total Bilirubin 0.6 (0.2-1.0) mg/dL AST 24 (15-37) U/L ALT 28 (12-78) U/L Alkaline Phosphatase 65 (46-116) U/L Troponin I 0.032 (0.000-0.056) ng/mL Total Protein 7.1 (6.4-8.2) g/dL Albumin 3.6 (3.4-5.0) g/dL Globulin 3.5 (2.3-3.5) g/dL Albumin/Globulin Ratio 1.0 L (1.2-2.2) Meds: Medications Discontinued Medications Generic Name Dose Route Start Last Admin Trade Name Mindy PRN Reason Stop Dose Admin Hydrocodone Bitart/Acetaminophen 1 tab 07/09/17 03:17 07/09/17 03:23 [place] 325-5 Mg PO 07/09/17 03:18 1 tab ONETIME ONE Administration Fentanyl 25 mcg 07/09/17 02:08 07/09/17 02:16 Sublimaze IVPUSH 07/09/17 02:09 25 mcg ONETIME ONE Administration Ondansetron HCl 4 mg 07/09/17 02:08 07/09/17 02:21 Zofran IVPUSH 07/09/17 02:09 4 mg ONETIME ONE Administration - Re-Assessments/Exams Free Text/Narrative Re-Assessment/Exam: 07/09/17 07:09 Initial EKG showed atrial fibrillation at a rate of 112. There may be some diffuse ST depression however she has flipped T waves in a number of leads was at which is an old finding is so I can't cervix tell if there's any actual ST depression. I don't see any ST elevation.. This patient received 0.25 mg of fentanyl which brought her pain level down to about a 3 and she felt much better. She was able to lie back on the stretcher comfortably. About an hour after arrival her rhythm switched to a sinus rhythm or atrial sensed ventricular paced rhythm he did continue to have T-wave inversions in the anterior lateral leads there were no ST changes noted.. Her chest x-ray shows the pacemaker in place there is no longer pleural effusion. It shows no acute changes. Labs were reviewed and are generally normal. I spoke with her physician Dr. Duran and suggested we just go ahead and put her on some mild pain medication such as hydrocodone and he agreed with this and he'll follow her up at the detention within the next few days. Departure - Departure Time of Disposition: 03:22 Disposition: DC/Tfer to SNF 03 Condition: Fair Clinical Impression: Pleurisy, Pleuresy - Discharge Information Instructions: Pleurodynia Referrals: Watler Silverman MD [Primary Care Provider] - Forms: ED Department Discharge Additional Instructions: Ms. Dickerson has been given a prescription for Narco 5/325, 20 tablets. Start with 1 tablet every 4 hours as needed for pain. She is aware that she will have to ask for the pain medication and I recommended to her that she ask for medication before the pain gets intense. If she seems sedated from the pain medication then you may increase the interval to every 6 hours. If one tablet every 4 hours is insufficient to control her pain then it may be increased to 2 tablets every 4 hours. Just be aware that this will increase the chances of sedation. - My Orders Last 24 Hours: My Active Orders 07/09/17 02:07 EKG 12 Lead [EK] Urgent 07/09/17 02:08 EKG Documentation Completion [RC] ASDIRECTED Chest 1V Frontal [CR] Urgent - Assessment/Plan Last 24 Hours: My Active Orders 07/09/17 02:07 EKG 12 Lead [EK] Urgent 07/09/17 02:08 EKG Documentation Completion [RC] ASDIRECTED Chest 1V Frontal [CR] Urgent
--- NOTE | 2017-07-11 09:37 | CR ---
Chest 1V Frontal HISTORY: Pain COMPARISON: Chest radiograph 06/11/2017 FINDINGS: Density in the lower aspect of the right upper lobe has been present to some degree on mult iple prior films likely represents some residual scarring incompletely reason all inflammatory proces s not entirely excluded stable cardiomegaly and hyperinflation. Incompletely visualized left hemidiap hragm at its peripheral margin compatible with atelectasis infiltrate or effusion. The left mid and u pper lung zones are clear. Impression: 1. Stable cardiomegaly. Left lung base atelectasis infiltrate or effusion. Patient did have effusions bilaterally on CT scan 06/11/2017. No acute congestive change. 2. Density right upper lobe present on prior study some of this is calcified chronic granulomatous ch roxie this was present on prior CT scan 2013. Likely stable finding.
== END 2017-07-09 03:49 ==
LOC: JP.ED 01:32
DX: R09.1 Pleurisy (principal); I48.91 Unspecified atrial fibrillation; Z87.01 Personal history of pneumonia (recurrent); Z88.1 Allergy status to other antibiotic agents; Z79.899 Other long term (current) drug therapy; Z95.0 Presence of cardiac pacemaker
CPT/HCPCS: 36415; 71045; 80053; 84484; 85025; 93005; 96374; 96375; 99285; A9270; J2405; J3010; 99284

== ENCOUNTER 2018-03-15 15:27 | Emergency (ER) | payer MEDICARE, BC ==
[2018-03-15 15:50] VITALS: BP 142/103
--- NOTE | 2018-03-15 16:30 | EDM.PDOC ---
ED HPI GENERAL MEDICAL PROBLEM - General Chief Complaint: General Stated Complaint: BLOOD IN URIN Time Seen by Provider: 03/15/18 16:15 Source of Information: Reports: Patient History Limitations: Reports: No Limitations - History of Present Illness INITIAL COMMENTS - FREE TEXT/NARRATIVE: 87-year-old female in with a small amount of hematuria and an elevated INR. It' s actually improving but when she mentioned she had some blood in her urine to the Coumadin clinic today, they sent her over to the emergency room. She has no dysuria, no trauma, no lightheadedness, nausea vomiting and just wants to go home. Onset: Unknown/Unsure Severity: Mild Right Upper Chest Pain Score (Numeric/FACES): 3 - Related Data Allergies Allergy/AdvReac Type Severity Reaction Status Date / Time bacitracin Allergy Rash Verified 03/15/18 15:48 bacitracin zinc Allergy Rash Verified 03/15/18 15:48 [From Neosporin ([id number])] levofloxacin Allergy Swelling Verified 03/15/18 15:48 neomycin sulfate Allergy Rash Verified 03/15/18 15:48 [From Neosporin ([id number])] polymyxin B Allergy Rash Verified 03/15/18 15:48 [From Neosporin ([id number])] Home Meds: Home Meds Acetaminophen [Tylenol] 650 mg PO Q4H PRN #100 tablet 06/17/17 [Rx] Metoprolol Succinate [Toprol XL] 50 mg PO DAILY #30 tab.er 06/17/17 [Rx] Irbesartan 75 mg PO DAILY 03/15/18 [History] Warfarin Sodium 2 mg PO DAILY 03/15/18 [History] Past Medical History HEENT History: Reports: Cataract, Impaired Vision Cardiovascular History: Reports: Pacemaker, Syncope Other Cardiovascular History: 3rd degree heart block. Respiratory History: Reports: Pneumonia, Recurrent Other Respiratory History: Mycobacterium avium-intracellulare complex of the lungs. 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: Musculoskeletal History: Reports: Arthritis Oncologic (Cancer) History: Reports: Basal Cell Carcinoma, Squamous Cell Carcinoma Dermatologic History: Reports: Other (See Below) Other Dermatologic History: skin cancer - Infectious Disease History Infectious Disease History: Reports: Chicken Pox - Past Surgical History HEENT Surgical History: Reports: Cataract Surgery Cardiovascular Surgical History: Reports: Pacer GI Surgical History: Reports: Cholecystectomy, Colonoscopy, EGD Dermatological Surgical History: Reports: Skin Biopsy Social & Family History - Family History Family Medical History: Noncontributory - Tobacco Use Smoking Status *Q: Never Smoker - Caffeine Use Caffeine Use: Reports: Coffee - Recreational Drug Use Recreational Drug Use: No ED ROS GENERAL - Review of Systems Review Of Systems: See Below Constitutional: Denies: Fever, Chills HEENT: Reports: Nosebleed (Had a small spot of blood from her nose earlier today too but that resolved right away) Respiratory: Denies: Shortness of Breath GI/Abdominal: Denies: Nausea, Vomiting : Reports: Hematuria Skin: Reports: No Symptoms. Denies: Bruising ED EXAM, GENERAL - Physical Exam Exam: See Below Exam Limited By: No Limitations General Appearance: Alert, No Apparent Distress Head: Atraumatic Respiratory/Chest: No Respiratory Distress, Lungs Clear Cardiovascular: Irregularly Irregular GI/Abdominal: Soft, Non-Tender Extremities: Normal Inspection. No: Pedal Edema Neurological: Alert, Oriented Course - Vital Signs Last Recorded V/S: Last Vital Signs Temp 94.8 F L 03/15/18 15:53 Pulse 93 03/15/18 15:53 Resp 16 03/15/18 15:53 BP 142/103 H 03/15/18 15:53 Pulse Ox 94 L 03/15/18 15:53 - Re-Assessments/Exams Free Text/Narrative Re-Assessment/Exam: 03/15/18 16:28 The fact that her INR was greater than 8 over the last several days, and has improved to 7 is reassuring. She is holding her Coumadin and rechecking her INR on Tuesday. A small amount of hematuria is not unexpected and she was reassured she was not "bleeding internally". Departure - Departure Time of Disposition: 16:49 Disposition: Home, Self-Care 01 Condition: Good Clinical Impression: Supratherapeutic INR, Hematuria - Discharge Information Instructions: Hematuria, Adult Referrals: Walter Silverman MD [Primary Care Provider] - Forms: ED Department Discharge Care Plan Goals: Continuing following recommendations of the Coumadin clinic, and return anytime if you have increased bleeding, dizziness or other concerns.
== END 2018-03-15 16:49 | disposition home or self-care (01) ==
LOC: JP.ED 15:27
DX: R31.9 Hematuria, unspecified (principal); R79.1 Abnormal coagulation profile; I44.2 Atrioventricular block, complete; Z87.01 Personal history of pneumonia (recurrent); Z88.8 Allergy status to other drugs, medicaments and biological substances; Z88.1 Allergy status to other antibiotic agents; Z79.899 Other long term (current) drug therapy; Z79.01 Long term (current) use of anticoagulants; Z95.0 Presence of cardiac pacemaker
CPT/HCPCS: 99283